=== PATIENT | male | born 1975 | race Caucasian/White ===

== ENCOUNTER 2017-07-06 18:23 | Emergency (ER) | payer MEDICAID, OTHER ==
[2017-07-06 21:03] LABS: AUTOMATED NEUTROPHIL # 6.1 TH/MM3 (1.8-7.7); BASOPHIL # 0.1 TH/MM3 (0-0.2); BASOPHIL % 0.7 % (0.0-2.0); EOSINOPHIL % 0.5 % (0.0-4.0); HEMATOCRIT 41.5 % (39.0-51.0); HEMO FLAGS DIFF FINAL; HEMOGLOBIN 14.2 GM/DL (13.0-17.0); LYMPH % 13.7 % (9.0-44.0); LYMPHOCYTE # 1.1 TH/MM3 (1.0-4.8); MEAN CORPUSCULAR HEMOGLOBIN 29.8 PG (27.0-34.0); MEAN CORPUSCULAR HGB CONC 34.3 % (32.0-36.0); MEAN PLATELET VOLUME 8.8 FL (7.0-11.0); MONO % 7.6 % (0.0-8.0); MONOCYTE # 0.6 TH/MM3 (0-0.9); NEUT % 77.5 % (16.0-70.0); PLATELET COUNT 225 TH/MM3 (150-450); RED BLOOD COUNT 4.77 MIL/MM3 (4.50-5.90); RED CELL DISTRIBUTION WIDTH 12.3 % (11.6-17.2); WHITE BLOOD COUNT 7.9 TH/MM3 (4.0-11.0)
[2017-07-06 21:11] LABS: ALBUMIN 4.2 GM/DL (3.4-5.0); ANION GAP 6 MEQ/L (5-15); BICARBONATE 28.8 MEQ/L (21.0-32.0); BLOOD UREA NITROGEN 8 MG/DL (7-18); CALCIUM 9.2 MG/DL (8.5-10.1); CHLORIDE 102 MEQ/L (98-107); CREATININE 0.94 MG/DL (0.60-1.30); GLOMERULAR FILTRATION RATE 89 ML/MIN (>89); GLUCOSE,RANDOM 70 MG/DL (74-106); POTASSIUM 3.2 MEQ/L (3.5-5.1); SODIUM (NA) 137 MEQ/L (136-145)
[2017-07-06 21:12] LABS: SALICYLATES LESS THAN 1.7 MG/DL (2.8-20.0)
[2017-07-06 21:13] LABS: ALT (GPT) 61 U/L (12-78); AST (GOT) 52 U/L (15-37)
[2017-07-06 21:16] LABS: ALCOHOL LESS THAN 3 MG/DL (0-5)
[2017-07-06 21:22] LABS: ALKALINE PHOSPHATASE 54 U/L (45-117); PHENYTOIN (DILANTIN) LESS THAN 0.4 MCG/ML (10.0-20.0); TOTAL BILIRUBIN ADULT 0.6 MG/DL (0.2-1.0); TOTAL PROTEIN 7.7 GM/DL (6.4-8.2)
[2017-07-06 21:29] LABS: ACETAMINOPHEN LESS THAN 2.0 MCG/ML (10.0-30.0)
[2017-07-06] MEDS: lamoTRIgine 100 MG TAB PO (22:30)
[2017-07-06] MEDS: QUEtiapine FUMARATE 300 MG TAB PO (22:30)
[2017-07-06] MEDS: PHENYTOIN SODIUM 100 MG CAP PO (22:30)
[2017-07-06 23:17] LABS: AMPHETAMINE, URINE NEG (NEG); BARBITURATES, URINE NEG (NEG); BENZODIAZEPINE,URINE NEG (NEG); CANNABINOIDS, URINE POS (NEG); COCAINE, URINE POS (NEG)
[2017-07-07] MEDS: POTASSIUM CHLORIDE 10 MEQ CONTROLLED RELEASE TAB PO (04:00)
== END 2017-07-07 04:47 ==
LOC: NEPJ 07-07 04:47
DX: Z13.89 Encounter for screening for other disorder (principal); R94.6 Abnormal results of thyroid function studies; E87.6 Hypokalemia; F19.10 Other psychoactive substance abuse, uncomplicated; F20.9 Schizophrenia, unspecified; F32.9 Major depressive disorder, single episode, unspecified; J45.909 Unspecified asthma, uncomplicated; Z72.0 Tobacco use
CPT/HCPCS: 80053; 80185; 80307; 84443; 85025; 99284

== ENCOUNTER 2017-07-07 20:02 | Observation (INO) | payer MEDICAID, OTHER ==
[~2017-07-07] VITALS: Ht 177.8 cm; Wt 68.0 kg
[~2017-07-07 20:02] MED LIST: IBUP200T47 PO; LACO100 PO; LAMO100T PO; PHEN200C3 PO; QUET1TAB10 PO
[2017-07-07 20:09] VITALS: BP 123/79; PULSE 81; RESP 16; TEMP 98.4; O2SAT 98
[2017-07-07] MEDS ORDERED: LAMO100 PO (20:18)
[2017-07-07] MEDS ORDERED: SODIUM CHLORIDE 0.9% FLUSH 10 ML FLUSH IVF PRN (20:45)
--- NOTE | 2017-07-07 20:46 | PD ---
HPI Chief Complaint: Seizure Time Seen by Provider: 20:26 Travel History International Travel<30 days: No Contact w/Intl Traveler<30days: No Traveled to known affect area: No History of Present Illness HPI Patient comes emergency Department under a Lopez act from [facility] after having a witnessed seizure. Patient reportedly fell approximately foot out of bed. Patient was given 4 of Ativan. Patient has a history of seizures but has not been taking his medication for the past week. Patient is on Dilantin. Patient is currently poor story and secondary to Ativan and recent seizure. Thus limiting H&P. History is obtained primarily through reports RN received from [facility]. [facility] will not take the patient back unless there Dilantin level was between 10 and 20. PFSH Past Medical History Asthma: Yes Depression: Yes (MDD) Diabetes: No Diminished Hearing: No Neurologic: Yes (HX SZ) Psychiatric: Yes Schizophrenia: Yes Seizures: Yes Tetanus Vaccination: Unknown Social History Alcohol Use: Yes Tobacco Use: Yes Substance Use: Yes Allergies-Medications (Allergen,Severity, Reaction): Coded Allergies: No Known Allergies (Verified Allergy, Unknown, 07/06/17) Reported Meds & Prescriptions Reported Meds & Active Scripts Active Phenytoin Extended 200 Mg Cap 200 Mg PO BID Reported Lamictal (Lamotrigine) 100 Mg Tab 100 Mg PO BID Vimpat (Lacosamide) 100 Mg Tab 100 Mg PO BID Quetiapine (Quetiapine Fumarate) 300 Mg Tab 150 Mg PO HS Lamotrigine 100 Mg Tab 100 Mg PO BID Ibuprofen 200 Mg Tab 200 Mg PO Q6H PRN Review of Systems ROS Limitations: Clinical Condition Physical Exam Exam Limitations: Clinical Condition Narrative GENERAL: Well-developed, well nourished, in no acute distress, and non-ill appearing. SKIN: Focused skin assessment warm and dry. HEAD: Atraumatic. Normocephalic. EYES: Pupils equal and round. EOMI. No scleral icterus. No injection or drainage. ENT: No nasal bleeding or discharge. Mucous membranes pink and moist. NECK: Trachea midline. C-collar in place. CARDIOVASCULAR: Regular rate and rhythm. No murmur appreciated. RESPIRATORY: No accessory muscle use. No respiratory distress. Clear to auscultation. Breath sounds equal bilaterally. MUSCULOSKELETAL: No obvious deformities. No clubbing. No cyanosis. No edema. Patient moving all 4 extremities. NEUROLOGICAL: Sleeping likely secondary to Ativan and suspect postictal. Data Data Last Documented VS Vital Signs Date Time Temp Pulse Resp B/P (MAP) Pulse Ox O2 Delivery O2 Flow Rate FiO2 07/07/17 22:00 91 16 126/74 (91) 100 07/07/17 20:09 98.4 Orders Orders Complete Blood Count With Diff (07/07/17 20:33) Basic Metabolic Panel (Bmp) (07/07/17 20:33) Alcohol (Ethanol) (07/07/17 20:33) Phenytoin (Dilantin) (07/07/17 20:33) Drug Screen, Random Urine (07/07/17 20:33) Ct Brain W/O Iv Contrast(Rout) (07/07/17 ) Blood Glucose (07/07/17 20:33) Ecg Monitoring (07/07/17 20:33) Iv Access Insert/Monitor (07/07/17 20:33) Oximetry (07/07/17 20:33) Sodium Chloride 0.9% Flush (Ns Flush) (07/07/17 20:45) Ct Cerv Spine W/O Contrast (07/07/17 ) Psych Screen (07/07/17 20:46) Electrocardiogram (07/07/17 20:13) Phenytoin Inj (Dilantin Inj) (07/07/17 22:15) Admit Order (Ed Use Only) (07/07/17 ) Vital Signs (Adult) Q4H (07/07/17 22:38) Activity Oob With Assistance (07/07/17 22:38) Notify Dr: Other (07/07/17 22:38) Labs Laboratory Tests Test 07/07/17 20:30 White Blood Count 6.6 TH/MM3 Red Blood Count 4.38 MIL/MM3 Hemoglobin 13.3 GM/DL Hematocrit 38.1 % Mean Corpuscular Volume 86.9 FL Mean Corpuscular Hemoglobin 30.3 PG Mean Corpuscular Hemoglobin Concent 34.9 % Red Cell Distribution Width 12.5 % Platelet Count 200 TH/MM3 Mean Platelet Volume 9.1 FL Neutrophils (%) (Auto) 65.3 % Lymphocytes (%) (Auto) 21.2 % Monocytes (%) (Auto) 10.5 % Eosinophils (%) (Auto) 2.2 % Basophils (%) (Auto) 0.8 % Neutrophils # (Auto) 4.3 TH/MM3 Lymphocytes # (Auto) 1.4 TH/MM3 Monocytes # (Auto) 0.7 TH/MM3 Eosinophils # (Auto) 0.1 TH/MM3 Basophils # (Auto) 0.1 TH/MM3 CBC Comment DIFF FINAL Differential Comment Blood Urea Nitrogen 16 MG/DL Creatinine 1.20 MG/DL Random Glucose 106 MG/DL Calcium Level 8.7 MG/DL Sodium Level 143 MEQ/L Potassium Level 3.9 MEQ/L Chloride Level 109 MEQ/L Carbon Dioxide Level 28.5 MEQ/L Anion Gap 6 MEQ/L Estimat Glomerular Filtration Rate 67 ML/MIN Phenytoin (Dilantin) Level 6.0 MCG/ML Ethyl Alcohol Level LESS THAN 3 MG/DL MDM Medical Decision Making Medical Screen Exam Complete: Yes Emergency Medical Condition: Yes Interpretation(s) EKG reviewed by Dr. Lee shows sinus rhythm with ventricular rate of 78. No STEMI. Last Impressions Head CT 07/07/17 0000 Signed Impressions: Service Date/Time: Friday, July 07, 2017 20:49 - CONCLUSION: 1. No acute intracranial abnormalities. Jim Huerta MD Cervical Spine CT 07/07/17 0000 Signed Impressions: Service Date/Time: Friday, July 07, 2017 20:51 - CONCLUSION: Normal examination for a patient of this age. Jim Huerta MD Differential Diagnosis Seizure, subtherapeutic Dilantin, Lopez act, metabolic disturbance, closed head injury, fracture Narrative Course Patient was seen and examined. IV was established patient's please and cardiac monitoring. Initial laboratory and radiological studies were ordered. Patient' s Dilantin level was found to be subtherapeutic following dose was given. Patient will be admitted to medicine. Until Lopez act will be lifted or patient 's Dilantin level is therapeutic and can be transferred back to [facility]. Discussed patient with Dr. Lee, who is in agreement with plan of care and disposition. Discussed patient with hospitalist who is agreeable to admit the patient. Physician Communication Physician Communication [phone] Gil, who is agreeable to admit the patient. Diagnosis Primary Impression: Seizures Additional Impressions: Subtherapeutic serum dilantin level Lopez act Admitting Information Admitting Physician Requests: Observation Condition: Stable Vikash Esposito Jul 07, 2017 20:46
--- NOTE | 2017-07-07 20:46 | PD ---
Physical Exam Date Seen by Provider: Jul 07, 2017 Narrative Patient presents to us from [facility] status post seizure 2. His is here. She states that he has a known seizure disorder. The worker from [facility] reports that he admitted that he had been noncompliant with his medications. Data Data Last Documented VS Vital Signs Date Time Temp Pulse Resp B/P (MAP) Pulse Ox O2 Delivery O2 Flow Rate FiO2 07/07/17 20:12 16 99 07/07/17 20:09 98.4 81 123/79 (94) Orders Orders Complete Blood Count With Diff (07/07/17 20:33) Basic Metabolic Panel (Bmp) (07/07/17 20:33) Alcohol (Ethanol) (07/07/17 20:33) Phenytoin (Dilantin) (07/07/17 20:33) Drug Screen, Random Urine (07/07/17 20:33) Ct Brain W/O Iv Contrast(Rout) (07/07/17 ) Blood Glucose (07/07/17 20:33) Ecg Monitoring (07/07/17 20:33) Iv Access Insert/Monitor (07/07/17 20:33) Oximetry (07/07/17 20:33) Sodium Chloride 0.9% Flush (Ns Flush) (07/07/17 20:45) Ct Cerv Spine W/O Contrast (07/07/17 ) MDM Supervised Visit with ANA: Yes Narrative Course I, Dr. Lee, have reviewed the advance practice practitioner's documentation and am in agreement, met with the patient face to face, made the diagnosis, and the medical decision making was done by me. *My assessment and Findings: The patient is currently sound asleep following his seizures and following Ativan 4 mg to control the seizures. Please see Suleiman Esposito PA-C's note for results of laboratory and radiographic evaluation, ED course, final diagnosis and disposition Richa Lee MD Jul 07, 2017 20:46
--- NOTE | 2017-07-07 21:32 | RADRPT ---
EXAM DATE/TIME: 07/07/2017 20:49 [facility] COMPARISON: No previous studies available for comparison. INDICATIONS : Seizure, possible fall. RADIATION DOSE: 56.35 CTDIvol (mGy) MEDICAL HISTORY : Seizures. Substance abuse. SURGICAL HISTORY : None. ENCOUNTER: Initial ACUITY: 1 day PAIN SCALE: Non-responsive LOCATION: cranial TECHNIQUE: Multiple contiguous axial images were obtained of the head. Using automated exposure control and adj ustment of the mA and/or kV according to patient size, radiation dose was kept as low as reasonably a chievable to obtain optimal diagnostic quality images. DICOM format image data is available electro nically for review and comparison. FINDINGS: CEREBRUM: The ventricles are normal for age. No evidence of midline shift, mass lesion, hemorrhage or acute in farction. No extra-axial fluid collections are seen. POSTERIOR FOSSA: The cerebellum and brainstem are intact. The 4th ventricle is midline. The cerebellopontine angle i s unremarkable. EXTRACRANIAL: The visualized portion of the orbits is intact. SKULL: The calvaria is intact. No evidence of skull fracture. CONCLUSION: 1. No acute intracranial abnormalities. Jim Huerta MD on July 07, 2017 at 21:28 Board Certified Radiologist. This report was verified electronically.
[2017-07-07 21:35] LABS: AUTOMATED NEUTROPHIL # 4.3 TH/MM3 (1.8-7.7); BASOPHIL # 0.1 TH/MM3 (0-0.2); BASOPHIL % 0.8 % (0.0-2.0); EOSINOPHIL # 0.1 TH/MM3 (0-0.4); EOSINOPHIL % 2.2 % (0.0-4.0); HEMATOCRIT 38.1 % (39.0-51.0); HEMOGLOBIN 13.3 GM/DL (13.0-17.0); LYMPH % 21.2 % (9.0-44.0); LYMPHOCYTE # 1.4 TH/MM3 (1.0-4.8); MEAN CELL VOLUME 86.9 FL (80.0-100.0); MEAN CORPUSCULAR HEMOGLOBIN 30.3 PG (27.0-34.0); MEAN CORPUSCULAR HGB CONC 34.9 % (32.0-36.0); MEAN PLATELET VOLUME 9.1 FL (7.0-11.0); MONO % 10.5 % (0.0-8.0); MONOCYTE # 0.7 TH/MM3 (0-0.9); NEUT % 65.3 % (16.0-70.0); PLATELET COUNT 200 TH/MM3 (150-450); RED BLOOD COUNT 4.38 MIL/MM3 (4.50-5.90); RED CELL DISTRIBUTION WIDTH 12.5 % (11.6-17.2); WHITE BLOOD COUNT 6.6 TH/MM3 (4.0-11.0)
[2017-07-07 21:37] LABS: BICARBONATE 28.5 MEQ/L (21.0-32.0); BLOOD UREA NITROGEN 16 MG/DL (7-18); CALCIUM 8.7 MG/DL (8.5-10.1); CHLORIDE 109 MEQ/L (98-107); GLOMERULAR FILTRATION RATE 67 ML/MIN (>89); GLUCOSE,RANDOM 106 MG/DL (74-106); SODIUM (NA) 143 MEQ/L (136-145)
--- NOTE | 2017-07-07 21:37 | RADRPT ---
EXAM DATE/TIME: 07/07/2017 20:51 [facility] COMPARISON: No previous studies available for comparison. INDICATIONS : Seizure, possible fall. RADIATION DOSE: 26.44 CTDIvol (mGy) MEDICAL HISTORY : Seizures. Substance abuse. SURGICAL HISTORY : None. ENCOUNTER: Initial ACUITY: 1 day PAIN SCALE: Non-responsive LOCATION: neck TECHNIQUE: Volumetric scanning of the cervical spine was performed. Multiplanar reconstructions in the sagittal, coronal and oblique axial planes were performed. Using automated exposure control and adjustment o f the mA and/or kV according to patient size, radiation dose was kept as low as reasonably achievable to obtain optimal diagnostic quality images. DICOM format image data is available electronically f or review and comparison. FINDINGS: VERTEBRAE: Normal vertebral body height. ALIGNMENT: No evidence of subluxation. C2-C3: The bony spinal canal is normal in size. No evidence of disc bulge or herniation. The neural forami na are bilaterally patent. C3-C4: The bony spinal canal is normal in size. No evidence of disc bulge or herniation. The neural forami na are bilaterally patent. C4-C5: The bony spinal canal is normal in size. No evidence of disc bulge or herniation. The neural forami na are bilaterally patent. C5-C6: The bony spinal canal is normal in size. No evidence of disc bulge or herniation. The neural forami na are bilaterally patent. C6-C7: The bony spinal canal is normal in size. No evidence of disc bulge or herniation. The neural forami na are bilaterally patent. C7-T1: The bony spinal canal is normal in size. No evidence of disc bulge or herniation. The neural forami na are bilaterally patent. CONCLUSION: Normal examination for a patient of this age. Jim Huerta MD on July 07, 2017 at 21:33 Board Certified Radiologist. This report was verified electronically.
[2017-07-07 22:00] VITALS: BP 126/74; PULSE 91; RESP 16; O2SAT 100
[2017-07-07] MEDS ORDERED: PHENYTOIN INJ 1,000 MG in SODIUM CHLORIDE 0.9% INJ 100 ML IV ONE (22:15)
--- NOTE | 2017-07-08 00:25 | EKG ---
Date Performed: 07/07/2017 Time Performed: 20:13:54 PTAGE: 42 years EKG: Sinus rhythm MINIMAL VOLTAGE CRITERIA FOR LVH, CONSIDER NORMAL VARIANT BORDERLINE ECG NO PREVIOUS TRACING DOCTOR: Joshua Delong Interpretating Date/Time 07/08/2017 00:24:34
[2017-07-08] MEDS ORDERED: LACTULOSE SYRUP 20 GM/30 ML CUP PO PRN (00:30)
[2017-07-08] MEDS ORDERED: NALOXONE HCL 0.4 MG/ML AMP IV PUSH PRN (00:30)
[2017-07-08] MEDS ORDERED: LORazepam 2 MG/ML VIAL IV PUSH PRN ×5 (00:30→00:45)
[2017-07-08] MEDS ORDERED: SODIUM CHLORIDE 0.9% FLUSH 10 ML FLUSH IV FLUSH PRN (00:30)
[2017-07-08] MEDS ORDERED: FLUMAZENIL 0.5 MG/5 ML VIAL IV PUSH PRN (00:30)
[2017-07-08] MEDS ORDERED: MAGNESIUM HYDROXIDE SUSP 30 ML CUP PO PRN (00:30)
[2017-07-08] MEDS ORDERED: LORazepam 1 MG TAB PO PRN (00:30)
[2017-07-08] MEDS ORDERED: ACETAMINOPHEN 325 MG TAB PO PRN (00:30)
[2017-07-08] MEDS ORDERED: BISACODYL 10 MG SUPP RECTAL PRN (00:30)
[2017-07-08] MEDS ORDERED: ONDANSETRON HCL 4 MG/2 ML VIAL IVP PRN (00:30)
[2017-07-08] MEDS ORDERED: SENNOSIDES 8.6 MG TAB PO PRN (00:30)
[2017-07-08] MEDS ORDERED: LORazepam 2 MG TAB PO PRN (00:30)
--- NOTE | 2017-07-08 00:42 | HHI.HP ---
[facility] Admission Diagnosis seizures, Lopez act Diagnoses: Travel History International Travel<30 Days: No Contact w/Intl Traveler <30 Da: No Traveled to Known Affected Are: No History of Present Illness 42-year-old male with a past medical history significant for unspecified psychiatric disorder undergoing treatment at [facility] Act, seizure disorder with noncompliance and cocaine abuse was brought to the emergency department from [facility] for witnessed seizure 2. The patient is status post administration of Ativan and will open his eyes to voice but does not answer questions. History obtained from his and [employer] employee. According to [employer] [facility] employee, the patient was in his room at [facility] when he had a generalized clonic tonic seizure witnessed by his roommate. Prior to ambulance arrival, the patient had another seizure witnessed by staff. No loss of bowel or bladder. The patient is noncompliant with his home seizure medication. His also reports cocaine use. The patient is currently under [employer] act for expressing suicidal ideation to police after an altercation at [facility]. Review of Systems Able to obtain secondary to patient's clinical condition Past Family Social History Past Medical History (Obtained from patient's ) Seizure disorder Unspecified psychiatric illness Alcohol/cocaine abuse Past Surgical History None Reported Medications Reported Meds & Active Scripts Active Phenytoin Extended 200 Mg Cap 200 Mg PO BID Reported Lamictal (Lamotrigine) 100 Mg Tab 100 Mg PO BID Vimpat (Lacosamide) 100 Mg Tab 100 Mg PO BID Quetiapine (Quetiapine Fumarate) 300 Mg Tab 150 Mg PO HS Lamotrigine 100 Mg Tab 100 Mg PO BID Ibuprofen 200 Mg Tab 200 Mg PO Q6H PRN Allergies: Coded Allergies: No Known Allergies (Verified Allergy, Unknown, 07/06/17) Family History Negative for CAD/DM Social History Positive tobacco. reports occasional alcohol use. Cocaine abuse. Physical Exam Vital Signs Vital Signs Date Time Temp Pulse Resp B/P (MAP) Pulse Ox O2 Delivery O2 Flow Rate FiO2 07/07/17 22:00 91 16 126/74 (91) 100 07/07/17 20:12 16 99 07/07/17 20:09 98.4 81 16 123/79 (19) 98 Physical Exam GENERAL: male lying in bed, sleeping. Opens eyes to voice. SKIN: No rashes, ecchymoses or lesions. Cool and dry. HEAD: Atraumatic. Normocephalic. EYES: Pupils pinpoint. No scleral icterus. No injection or drainage. ENT: Nose without bleeding, purulent drainage or septal hematoma. Airway patent. NECK: Trachea midline. No JVD or lymphadenopathy. CARDIOVASCULAR: Regular rate and rhythm without murmurs, gallops, or rubs. RESPIRATORY: Clear to auscultation. Breath sounds equal bilaterally. No wheezes , rales, or rhonchi. GASTROINTESTINAL: Abdomen soft, non-tender, nondistended. No hepato-splenomegaly , or palpable masses. MUSCULOSKELETAL: Extremities without clubbing, cyanosis, or edema. No joint tenderness, effusion, or edema noted. NEUROLOGICAL: Drowsy. Opens eyes to voice. Does not follow commands. Does not answer questions. Laboratory Laboratory Tests Test 07/07/17 20:30 White Blood Count 6.6 Red Blood Count 4.38 Hemoglobin 13.3 Hematocrit 38.1 Mean Corpuscular Volume 86.9 Mean Corpuscular Hemoglobin 30.3 Mean Corpuscular Hemoglobin Concent 34.9 Red Cell Distribution Width 12.5 Platelet Count 200 Mean Platelet Volume 9.1 Neutrophils (%) (Auto) 65.3 Lymphocytes (%) (Auto) 21.2 Monocytes (%) (Auto) 10.5 Eosinophils (%) (Auto) 2.2 Basophils (%) (Auto) 0.8 Neutrophils # (Auto) 4.3 Lymphocytes # (Auto) 1.4 Monocytes # (Auto) 0.7 Eosinophils # (Auto) 0.1 Basophils # (Auto) 0.1 CBC Comment DIFF FINAL Differential Comment Blood Urea Nitrogen 16 Creatinine 1.20 Random Glucose 106 Calcium Level 8.7 Sodium Level 143 Potassium Level 3.9 Chloride Level 109 Carbon Dioxide Level 28.5 Anion Gap 6 Estimat Glomerular Filtration Rate 67 Phenytoin (Dilantin) Level 6.0 Ethyl Alcohol Level LESS THAN 3 Result Diagram: 07/07/17202907/07/172029 Caprini VTE Risk Assessment Caprini VTE Risk Assessment: No/Low Risk (score <= 1) Caprini Risk Assessment Model Point Value = 1 Point Value = 2 Point Value = 3 Point Value = 5 Age 41-60 Minor surgery BMI > 25 kg/m2 Swollen legs Varicose veins or History of unexplained or recurrent spontaneous Oral contraceptives or hormone replacement Sepsis (< 1 month) Serious lung disease, including pneumonia (< 1 month) Abnormal pulmonary function Acute myocardial infarction Congestive heart failure (< 1 month) History of inflammatory bowel disease Medical patient at bed rest Age 61-74 Arthroscopic surgery Major open surgery (> 45 min) Laparoscopic surgery (> 45 min) Malignancy Confined to bed (> 72 hours) Immobilizing plaster cast Central venous access Age >= 75 History of VTE Family history of VTE Factor V Leiden Prothrombin [id number] Lupus anticoagulant Anticardiolipin antibodies Elevated serum homocysteine Heparin-induced thrombocytopenia Other congenital or acquired thrombophilia Stroke (< 1 month) Elective arthroplasty Hip, pelvis, or leg fracture Acute spinal cord injury (< 1 month) Prophylaxis Regimen Total Risk Factor Score Risk Level Prophylaxis Regimen 0-1 Low Early ambulation 2 Moderate Order ONE of the following: *Sequential Compression Device (SCD) *Heparin 5000 units SQ BID 3-4 Higher Order ONE of the following medications: *Heparin 5000 units SQ TID *Enoxaparin/Lovenox 40 mg SQ daily (WT < 150 kg, CrCl > 30 mL/min) *Enoxaparin/Lovenox 30 mg SQ daily (WT < 150 kg, CrCl > 10-29 mL/min) *Enoxaparin/Lovenox 30 mg SQ BID (WT < 150 kg, CrCl > 30 mL/min) AND/OR *Sequential Compression Device (SCD) 5 or more Highest Order ONE of the following medications: *Heparin 5000 units SQ TID (Preferred with Epidurals) *Enoxaparin/Lovenox 40 mg SQ daily (WT < 150 kg, CrCl > 30 mL/min) *Enoxaparin/Lovenox 30 mg SQ daily (WT < 150 kg, CrCl > 10-29 mL/min) *Enoxaparin/Lovenox 30 mg SQ BID (WT < 150 kg, CrCl > 30 mL/min) AND *Sequential Compression Device (SCD) Assessment and Plan Assessment and Plan Assessment/plan: 1. Witnessed seizure with history of seizure disorder Secondary to medication noncompliance Dilantin level less than 0.4 Status post loading dose of Dilantin in the ED Continue home Dilantin and Lamictal Seizure precautions Ativan prn Transfer to [facility] act once Dilantin level therapeutic 2. Specified psychiatric disorder/Lopez act/suicidal ideation Patient reported intention to harm himself to police after altercation at [facility] Has psychiatric history although his is not aware of diagnoses Psychiatry consulted, appreciate recommendations 3. History of cocaine/alcohol abuse [facility] protocol Multivitamin, thiamine, folate FEN Heart healthy diet Electrolytes: monitor and replete prn Elsa Gil MD Jul 08, 2017 00:42
[2017-07-08] MEDS: THIAMINE INJ 100 MG in SODIUM CHLORIDE 0.9% INJ 100 ML IV SCH (01:33)
[2017-07-08] MEDS: MULTIVITAMIN INJ 10 ML, FOLIC ACID INJ 1 MG in SODIUM CHLORID 0.9% 500 ML INJ 500 ML IV SCH (01:33)
[2017-07-08 02:45] VITALS: BP 109/64; PULSE 83; RESP 18; TEMP 96.7; O2SAT 97
[2017-07-08 08:00] VITALS: BP 124/71; PULSE 72; RESP 20; TEMP 96.4; O2SAT 99
[2017-07-08] MEDS: SODIUM CHLORIDE 0.9% FLUSH 10 ML FLUSH IV FLUSH SCH ×2 (09:13→22:25)
[2017-07-08] MEDS: lamoTRIgine 100 MG TAB PO SCH ×2 (09:14→22:26)
[2017-07-08] MEDS: PHENYTOIN SODIUM 100 MG CAP PO SCH ×2 (09:14→22:25)
[2017-07-08] MEDS: DOCUSATE SODIUM 50 MG/SENNA 8.6 MG TAB PO SCH ×2 (09:15→22:26)
--- NOTE | 2017-07-08 11:09 | HHI.PR ---
Subjective Remarks Follow-up seizure. Lethargic but easily arousable. Admits noncompliance coz he is homeless. Lopez RN Objective Vitals Vital Signs Date Time Temp Pulse Resp B/P (MAP) Pulse Ox O2 Delivery O2 Flow Rate FiO2 07/08/17 08:00 96.4 72 20 124/71 (88) 99 07/08/17 02:45 96.7 83 18 109/64 (79) 97 07/07/17 22:00 91 16 126/74 (91) 100 07/07/17 20:12 16 99 07/07/17 20:09 98.4 81 16 123/79 (94) 98 I/O 07/07/17 07/07/17 07/07/17 07/08/17 07/08/17 07/08/17 07:00 15:00 23:00 07:00 15:00 23:00 Intake Total 120 ml 720 ml Output Total 950 ml 500 ml Balance -830 ml 220 ml Intake Oral 720 ml IV Total 120 ml Output Urine Total 950 ml 500 ml Result Diagram: 07/07/17202907/07/172029 Imaging Last Impressions Head CT 07/07/17 0000 Signed Impressions: Service Date/Time: Friday, July 07, 2017 20:49 - CONCLUSION: 1. No acute intracranial abnormalities. Jim Huerta MD Cervical Spine CT 07/07/17 0000 Signed Impressions: Service Date/Time: Friday, July 07, 2017 20:51 - CONCLUSION: Normal examination for a patient of this age. Jim Huerta MD Objective Remarks GENERAL: male lying in bed, sleeping. SKIN: No rashes, ecchymoses or lesions. Cool and dry. CARDIOVASCULAR: Regular rate and rhythm without murmurs, gallops, or rubs. RESPIRATORY: Clear to auscultation. Breath sounds equal bilaterally. No wheezes , rales, or rhonchi. GASTROINTESTINAL: Abdomen soft, non-tender, nondistended. MUSCULOSKELETAL: Extremities without clubbing, cyanosis, or edema. No joint tenderness, effusion, or edema noted. NEUROLOGICAL: Drowsy. Answers questions and follows commands appropriately Procedures none A/P Problem List: (1) Seizures ICD Code: R56.9 - Unspecified convulsions Status: Acute Assessment and Plan 1. Witnessed seizure with history of seizure disorder secondary to noncompliance. Dilantin level less than 0.4 Status post loading dose of Dilantin in the ED Continue home Dilantin and Lamictal. Med list also shows he is on Vimpat and norma restart Seizure precautions Ativan prn Transfer to [facility] once Dilantin level therapeutic. Monitor LFTs AST slightly up 2. Specified psychiatric disorder/Lopez act/suicidal ideation Patient reported intention to harm himself to police after altercation at [facility] Has psychiatric history although his is not aware of diagnoses Psychiatry consulted, appreciate recommendations ct BA and restart Seroquel 3. History of cocaine/alcohol abuse [facility] protocol Multivitamin, thiamine, folate FEN Heart healthy diet Electrolytes: monitor and replete prn Discharge Planning Back to [facility] when Dilantin therapeutic Abando,Jose G Roberson MD Jul 08, 2017 11:09
[2017-07-08 12:00] VITALS: BP 104/55; PULSE 80; RESP 20; TEMP 97.1; O2SAT 96
--- NOTE | 2017-07-08 12:25 | PD.PSY.CON ---
Provisional Diagnosis Admission Date Jul 07, 2017 at 22:40 Jenison I. Post ictal confusion, substance induced mood disorder, cocaine, alcohol and cannabis use disorder, history of bipolar disorder Jenison II. Deferred Jenison III. Seizures History of Present Illness Service Psychiatry Consult Requested By ER team Reason for Consult Under Lopez act Primary Care Physician Unknown HPI The patient is a 42-year-old man, domiciled in [place] his , employed as a chef de partie in a restaurant, with psychiatric history of bipolar disorder , cocaine, cannabis, previous psychiatric hospitalizations, previous suicidal attempts, with a past medical history of seizures, noncompliant with medications , who was brought to the emergency department from [facility] for witnessed seizure 2. The patient is status post administration of Ativan and will open his eyes to voice but does not answer questions. History obtained from his and [facility] employee. According to [facility] [facility] employee, the patient was in his room at [facility] when he had a generalized clonic tonic seizure witnessed by his roommate. Prior to ambulance arrival, the patient had another seizure witnessed by staff. The patient is currently under Lopez act for expressing suicidal ideation to police after an altercation at [facility]. On psychiatric evaluation today the patient seems to be confused, lethargic, but is able to answer many of my questions. Patient says that he has been in treatment of addiction in [facility]. He doesn't know exactly what happened and what is the reason he was brought here to the hospital. His is to be oriented 3, he reports okay mood, denies suicidal and homicidal ideation, denies visual and auditory hallucinations at this moment. Patient denies that he had ever stated that he wanted to kill himself, he says "I don't really remember". He reports daily use of cocaine and cannabis. Review of Systems Constitutional: DENIES: Diaphoretic episodes, Fatigue, Fever, Weight gain, Weight loss, Chills, Dizziness, Change in appetite, Night Sweats Endocrine: DENIES: Heat/cold intolerance, Polydipsia, Polyuria, Polyphagia Eyes: DENIES: Blurred vision, Diplopia, Eye inflammation, Eye pain, Vision loss , Photosensitivity, Double Vision Ears, nose, mouth, throat: DENIES: Tinnitus, Hearing loss, Vertigo, Nasal discharge, Oral lesions, Throat pain, Hoarseness, Ear Pain, Running Nose, Epistaxis, Sinus Pain, Toothache, Odynophagia Respiratory: DENIES: Apneas, Cough, Snoring, Wheezing, Hemoptysis, Sputum production, Shortness of breath Cardiovascular: DENIES: Chest pain, Palpitations, Syncope, Dyspnea on Exertion , PND, Lower Extremity Edema, Orthopnea, Claudication Gastrointestinal: DENIES: Abdominal pain, Black stools, Bloody stools, Constipation, Diarrhea, Nausea, Vomiting, Difficulty Swallowing, Anorexia Genitourinary: DENIES: Sexual dysfunction, Urinary frequency, Urinary incontinence, Urgency, Hematuria, Dysuria, Nocturia, Penile Discharge, Testicular Pain, Testicular Swelling Musculoskeletal: DENIES: Joint pain, Muscle aches, Stiffness, Joint Swelling, Back pain, Neck pain Integumentary: DENIES: Abnormal pigmentation, Nail changes, Pruritus, Rash Hematologic/lymphatic: DENIES: Bruising, Lymphadenopathy Neurologic: DENIES: Abnormal gait, Headache, Localized weakness, Paresthesias, Seizures, Speech Problems, Tremor, Poor Balance Psychiatric: COMPLAINS OF: Confusion, DENIES: Anxiety, Mood changes, Depression , Hallucinations, Agitation, Suicidal Ideation, Homicidal Ideation, Delusions Past Family Social History Coded Allergies: No Known Allergies (Verified Allergy, Unknown, 07/06/17) Active Scripts Phenytoin Extended (Phenytoin Extended) 200 Mg Cap, 200 MG PO BID for Control Seizures, #180 CAP 0 Refills Prov:Sha Mezapascual SAEZ 04/30/17 Reported Medications Lamotrigine (Lamictal) 100 Mg Tab, 100 MG PO BID for Control Seizures, #60 TAB 0 Refills 07/07/17 Lacosamide (Vimpat) 100 Mg Tab, 100 MG PO BID for Control Seizures, #60 TAB 0 Refills 07/06/17 Quetiapine (Quetiapine) 300 Mg Tab, 150 MG PO HS, #30 TAB 0 Refills 07/06/17 Lamotrigine (Lamotrigine) 100 Mg Tab, 100 MG PO BID for Control Seizures, #60 TAB 0 Refills 07/06/17 Ibuprofen (Ibuprofen) 200 Mg Tab, 200 MG PO Q6H Y for PAIN SCALE 1 TO 10, TAB 0 Refills 06/18/16 Current Medications Medications (Trade) Dose Ordered Sig/Flavio Route Start Time Stop Time Status Last Admin (LaMICtal) 100 mg BID PO 07/08/17 09:00 07/08/17 09:14 (Dilantin) 200 mg BID PO 07/08/17 09:00 07/08/17 09:14 (NS Flush) 2 ml UNSCH PRN IV FLUSH 07/08/17 00:30 (NS Flush) 2 ml BID IV FLUSH 07/08/17 09:00 07/08/17 09:13 (Tylenol) 650 mg Q4H PRN PO 07/08/17 00:30 (Zofran Inj) 4 mg Q6H PRN IVP 07/08/17 00:30 (Narcan Inj) 0.4 mg UNSCH PRN IV PUSH 07/08/17 00:30 (Cortney-Colace) 1 tab BID PO 07/08/17 09:00 07/08/17 09:15 (Milk Of Magnesia Liq) 30 ml Q12H PRN PO 07/08/17 00:30 (Senokot) 17.2 mg Q12H PRN PO 07/08/17 00:30 (Dulcolax Supp) 10 mg DAILY PRN RECTAL 07/08/17 00:30 (Lactulose Liq) 30 ml DAILY PRN PO 07/08/17 00:30 Multivitamins 10 ml/Folic Acid 1 mg/Sodium Chloride 510.2 ml @ 125 mls/hr Q24H IV 07/08/17 01:00 07/13/17 00:59 07/08/17 01:33 Thiamine HCl 100 mg/Sodium Chloride 101 ml @ 100 mls/hr Q24H IV 07/08/17 01:00 07/11/17 00:59 07/08/17 01:33 (Vitamin B1) 100 mg DAILY PO 07/11/17 09:00 (Romazicon Inj) 0.2 mg Q1M PRN IV PUSH 07/08/17 00:30 (Ativan) 1 mg Q4H PRN PO 07/08/17 00:30 (Ativan Inj) 1 mg Q4H PRN IV PUSH 07/08/17 00:30 (Ativan) 2 mg Q2H PRN PO 07/08/17 00:30 (Ativan Inj) 2 mg Q2H PRN IV PUSH 07/08/17 00:30 (Ativan Inj) 2 mg Q1H PRN IV PUSH 07/08/17 00:30 (Ativan Inj) 2 mg Q15M PRN IV PUSH 07/08/17 00:30 (Ativan Inj) 1 mg Q15M PRN IV PUSH 07/08/17 00:45 Family Psych History No family psychiatric history Social History Patient was born and raised in [place], he lives in [facility] with his , he works as a chef de partie in a restaurant, his highest level of education is has Patient's Strengths (min. 2) He is in treatment for addiction at this moment Physical Exam Very lethargic and somnolent Vital Signs Vital Signs Date Time Temp Pulse Resp B/P (MAP) Pulse Ox O2 Delivery O2 Flow Rate FiO2 07/08/17 08:00 96.4 72 20 124/71 (88) 99 I/O 07/08/17 07/08/17 07/09/17 08:00 16:00 00:00 Intake Total 120 ml 720 ml Output Total 950 ml 500 ml Balance -830 ml 220 ml Lab Results Test 07/07/17 20:30 White Blood Count 6.6 TH/MM3 Red Blood Count 4.38 MIL/MM3 Hemoglobin 13.3 GM/DL Hematocrit 38.1 % Mean Corpuscular Volume 86.9 FL Mean Corpuscular Hemoglobin 30.3 PG Mean Corpuscular Hemoglobin Concent 34.9 % Red Cell Distribution Width 12.5 % Platelet Count 200 TH/MM3 Mean Platelet Volume 9.1 FL Neutrophils (%) (Auto) 65.3 % Lymphocytes (%) (Auto) 21.2 % Monocytes (%) (Auto) 10.5 % Eosinophils (%) (Auto) 2.2 % Basophils (%) (Auto) 0.8 % Neutrophils # (Auto) 4.3 TH/MM3 Lymphocytes # (Auto) 1.4 TH/MM3 Monocytes # (Auto) 0.7 TH/MM3 Eosinophils # (Auto) 0.1 TH/MM3 Basophils # (Auto) 0.1 TH/MM3 CBC Comment DIFF FINAL Differential Comment Blood Urea Nitrogen 16 MG/DL Creatinine 1.20 MG/DL Random Glucose 106 MG/DL Calcium Level 8.7 MG/DL Sodium Level 143 MEQ/L Potassium Level 3.9 MEQ/L Chloride Level 109 MEQ/L Carbon Dioxide Level 28.5 MEQ/L Anion Gap 6 MEQ/L Estimat Glomerular Filtration Rate 67 ML/MIN Phenytoin (Dilantin) Level 6.0 MCG/ML Ethyl Alcohol Level LESS THAN 3 MG/DL Mental Status Examination Appearance: Appropriate Consciousness: Alert Orientation: x4 Motor Activity: Normal gait Speech: Unremarkable Language: Adequate Fund of Knowledge: Adequate Attention and Concentration: Adequate Memory: Unremarkable Mood: Appropriate Affect: Blunt Thought Process & Associations: Intact Thought Content: Appropriate Hallucination Type: None Delusion Type: None Suicidal Ideation: No Suicidal Plan: No Suicidal Intention: No Homicidal Ideation: No Homicidal Plan: No Homicidal Intention: No Insight: Fair Judgment: Impulsive Assessment & Plan Problem List: (1) Post-ictal confusion ICD Codes: F05 - Delirium due to known physiological condition Assessment & Plan: On psychiatric evaluation today the patient is a little bit lethargic, somnolent, confused at times, but able to cooperate. Patient reports that he has been in treatment of addiction in a [facility]. He denies most symptoms of this moment, she denies suicidal and homicidal ideation, he denies visual and auditory hallucinations. Patient doesn't seem to have memory and recollection of the acts that brought him to the hospital and initiated the Lopez act. This patient should remain on the Lopez act and once medically cleared, he should be transferred back to [facility]. I will reinitiate Seroquel 150 mg daily that he was taking in [facility]. He needs to be in [facility]. Brief supportive psychotherapy and psychoeducation provided . We'll follow-up. Assessment & Plan Estimated LOS: Sander Win MD Jul 08, 2017 12:25
[2017-07-08] MEDS ORDERED: PILL SPLITTER OTHER PRN (13:15)
[2017-07-08] MEDS: LACOSAMIDE 100 MG TAB PO SCH ×2 (13:54→22:25)
[2017-07-08 14:40] LABS: FREE T3 2.25 PG/ML (2.18-3.98); FREE T4 0.99 NG/DL (0.76-1.46)
[2017-07-08] MEDS ORDERED: QUEtiapine FUMARATE 300 MG TAB PO SCH (21:00)
[2017-07-08 21:39] VITALS: BP 126/82; PULSE 90; RESP 18; TEMP 98.8; O2SAT 98
[2017-07-09] VITALS: BP 116/65; PULSE 74; RESP 16; TEMP 98.2; O2SAT 98
[2017-07-09] MEDS: THIAMINE INJ 100 MG in SODIUM CHLORIDE 0.9% INJ 100 ML IV SCH (01:00)
[2017-07-09] MEDS: MULTIVITAMIN INJ 10 ML, FOLIC ACID INJ 1 MG in SODIUM CHLORID 0.9% 500 ML INJ 500 ML IV SCH (02:00)
[2017-07-09 04:14] VITALS: BP 107/62; PULSE 81; RESP 16; TEMP 97.8; O2SAT 98
[2017-07-09 07:47] LABS: BASOPHIL # 0.1 TH/MM3 (0-0.2); EOSINOPHIL # 0.1 TH/MM3 (0-0.4); EOSINOPHIL % 2.1 % (0.0-4.0); HEMATOCRIT 38.6 % (39.0-51.0); HEMOGLOBIN 13.3 GM/DL (13.0-17.0); LYMPH % 29.7 % (9.0-44.0); MEAN CELL VOLUME 87.4 FL (80.0-100.0); MEAN CORPUSCULAR HEMOGLOBIN 30.1 PG (27.0-34.0); MEAN CORPUSCULAR HGB CONC 34.4 % (32.0-36.0); MEAN PLATELET VOLUME 8.4 FL (7.0-11.0); MONO % 7.5 % (0.0-8.0); MONOCYTE # 0.5 TH/MM3 (0-0.9); NEUT % 59.7 % (16.0-70.0); PLATELET COUNT 226 TH/MM3 (150-450); RED BLOOD COUNT 4.42 MIL/MM3 (4.50-5.90); RED CELL DISTRIBUTION WIDTH 12.5 % (11.6-17.2); WHITE BLOOD COUNT 6.7 TH/MM3 (4.0-11.0)
[2017-07-09 08:00] VITALS: BP 115/67; PULSE 82; RESP 18; TEMP 97.7; O2SAT 95
[2017-07-09 08:47] LABS: BICARBONATE 28.7 MEQ/L (21.0-32.0); CALCIUM 8.5 MG/DL (8.5-10.1); CREATININE 0.92 MG/DL (0.60-1.30)
[2017-07-09 08:48] LABS: PHENYTOIN (DILANTIN) 23.4 MCG/ML (10.0-20.0)
[2017-07-09] MEDS: DOCUSATE SODIUM 50 MG/SENNA 8.6 MG TAB PO SCH (10:07)
[2017-07-09] MEDS: lamoTRIgine 100 MG TAB PO SCH (10:07)
[2017-07-09] MEDS: LACOSAMIDE 100 MG TAB PO SCH (10:07)
[2017-07-09] MEDS: SODIUM CHLORIDE 0.9% FLUSH 10 ML FLUSH IV FLUSH SCH (10:08)
--- NOTE | 2017-07-09 11:18 | HHI.PR ---
Subjective Remarks F/u Sz. Doing ok dilantin 23 no complaints no dizziness ambulating steady. States he only takes Seroquel 50 mg BID dw RN Objective Vitals Vital Signs Date Time Temp Pulse Resp B/P (MAP) Pulse Ox O2 Delivery O2 Flow Rate FiO2 07/09/17 08:00 97.7 82 18 115/67 (83) 95 07/09/17 04:14 97.8 81 16 107/62 (77) 98 07/09/17 00:00 98.2 74 16 116/65 (82) 98 07/08/17 21:39 98.8 90 18 126/82 (97) 98 07/08/17 12:00 97.1 80 20 104/55 (71) 96 I/O 07/08/17 07/08/17 07/08/17 07/09/17 07/09/17 07/09/17 07:00 15:00 23:00 07:00 15:00 23:00 Intake Total 120 ml 720 ml Output Total 950 ml 500 ml 625 ml Balance -830 ml 220 ml -625 ml Intake Oral 720 ml IV Total 120 ml Output Urine Total 950 ml 500 ml 625 ml Result Diagram: 07/09/17 0702 07/09/17 0702 Imaging Last Impressions Head CT 07/07/17 0000 Signed Impressions: Service Date/Time: Friday, July 07, 2017 20:49 - CONCLUSION: 1. No acute intracranial abnormalities. Jim Huerta MD Cervical Spine CT 07/07/17 0000 Signed Impressions: Service Date/Time: Friday, July 07, 2017 20:51 - CONCLUSION: Normal examination for a patient of this age. Jim Huerta MD Objective Remarks GENERAL: male lying in bed, WD WN SKIN: No rashes, ecchymoses or lesions. Cool and dry. CARDIOVASCULAR: Regular rate and rhythm without murmurs, gallops, or rubs. RESPIRATORY: Clear to auscultation. Breath sounds equal bilaterally. No wheezes , rales, or rhonchi. GASTROINTESTINAL: Abdomen soft, non-tender, nondistended. MUSCULOSKELETAL: Extremities without clubbing, cyanosis, or edema. No joint tenderness, effusion, or edema noted. NEUROLOGICAL: Alert and oriented. Nonfocal Procedures none A/P Problem List: (1) Seizures ICD Code: R56.9 - Unspecified convulsions Status: Acute Assessment and Plan 1. Witnessed seizure with history of seizure disorder secondary to noncompliance. Dilantin level less than 0.4 Status post loading dose of Dilantin in the ED Continue home Dilantin and Lamictal. Med list also shows he is on Vimpat and will restart Seizure precautions Ativan prn Transfer to [facility] once Dilantin level therapeutic- 23 no complaints no dizziness ambulating steady hold tonight's dose and restart in the morning with follow-up levels . Monitor LFTs AST slightly up 2. Specified psychiatric disorder/Lopez act/suicidal ideation Patient reported intention to harm himself to police after altercation at [facility] Has psychiatric history although his is not aware of diagnoses Psychiatry consulted, appreciate recommendations ct BA and restart Seroquel 3. History of cocaine/alcohol abuse [facility] protocol Multivitamin, thiamine, folate FEN Heart healthy diet Electrolytes: monitor and replete prn Discharge Planning Discharge patient to home Condition on discharge: Improved Regular Diet as tolerated Ad Marlene activity no driving Rx written: None Follow-up with primary care physician, repeat Dilantin 07/12 Jose G Diaz MD Jul 09, 2017 11:18
[2017-07-09] MEDS ORDERED: SERO25TA PO (11:29)
--- NOTE | 2017-07-09 11:29 | HHI.DCPOC ---
Discharge Care Plan Diagnosis: (1) Seizures Goals to Promote Your Health * To prevent worsening of your condition and complications * To maintain your health at the optimal level Directions to Meet Your Goals Take your medications as prescribed Follow your dietary instruction Follow activity as directed Keep your appointments as scheduled Take your immunizations and boosters as scheduled If your symptoms worsen call your PCP, if no PCP go to Urgent Care Center or Emergency Room Smoking is Dangerous to Your Health. Avoid second hand smoke Call the 24-hour hour crisis hotline for domestic abuse at Yanet Carmona PA-C Jul 09, 2017 11:29
[2017-07-09 11:40] VITALS: BP 131/69; PULSE 88; RESP 17; TEMP 96.7; O2SAT 99
--- NOTE | 2017-07-09 13:36 | HHI.PYPN ---
Subjective Remarks The patient was seen today for psychiatric reevaluation. Chart was reviewed. On psychiatric evaluation I find a patient that is calm, cooperative and pleasant. She reported that he feels much better today, he is very happy of the result of medical care in [place]. Patient reports that for the last 5 days after an argument with his significant other he decided to get out of his house and basically is sleep his car every night. He says that he has been going regularly to his jobs, but he was not going home. He admits that he has been drinking alcohol and using drugs. At this moment the patient denies depressive symptoms, he denies anxiety, he denies chi, denies psychosis. He denies suicidal and homicidal ideation, he denies visual and auditory hallucinations. Patient is logical, coherent and relevant, oriented 3. No withdrawal, no agitation or aggressive behavior noted. Review of Systems Constitutional: DENIES: Diaphoretic episodes, Fatigue, Fever, Weight gain, Weight loss, Chills, Dizziness, Change in appetite, Night Sweats Endocrine: DENIES: Heat/cold intolerance, Polydipsia, Polyuria, Polyphagia Eyes: DENIES: Blurred vision, Diplopia, Eye inflammation, Eye pain, Vision loss , Photosensitivity, Double Vision Ears, nose, mouth, throat: DENIES: Tinnitus, Hearing loss, Vertigo, Nasal discharge, Oral lesions, Throat pain, Hoarseness, Ear Pain, Running Nose, Epistaxis, Sinus Pain, Toothache, Odynophagia Respiratory: DENIES: Apneas, Cough, Snoring, Wheezing, Hemoptysis, Sputum production, Shortness of breath Cardiovascular: DENIES: Chest pain, Palpitations, Syncope, Dyspnea on Exertion , PND, Lower Extremity Edema, Orthopnea, Claudication Gastrointestinal: DENIES: Abdominal pain, Black stools, Bloody stools, Constipation, Diarrhea, Nausea, Vomiting, Difficulty Swallowing, Anorexia Genitourinary: DENIES: Sexual dysfunction, Urinary frequency, Urinary incontinence, Urgency, Hematuria, Dysuria, Nocturia, Penile Discharge, Testicular Pain, Testicular Swelling Musculoskeletal: DENIES: Joint pain, Muscle aches, Stiffness, Joint Swelling, Back pain, Neck pain Integumentary: DENIES: Abnormal pigmentation, Nail changes, Pruritus, Rash Hematologic/lymphatic: DENIES: Bruising, Lymphadenopathy Immunologic/allergic: DENIES: Eczema, Urticaria Neurologic: DENIES: Abnormal gait, Headache, Localized weakness, Paresthesias, Seizures, Speech Problems, Tremor, Poor Balance Psychiatric: DENIES: Anxiety, Confusion, Mood changes, Depression, Hallucinations, Agitation, Suicidal Ideation, Homicidal Ideation, Delusions Mental Status Examination Appearance: Appropriate Consciousness: Alert Orientation: x4 Motor Activity: Normal gait Speech: Unremarkable Language: Adequate Fund of Knowledge: Adequate Attention and Concentration: Adequate Memory: Unremarkable Mood: Appropriate Affect: Blunt Thought Process & Associations: Intact Thought Content: Appropriate Hallucination Type: None Delusion Type: None Suicidal Ideation: No Suicidal Plan: No Suicidal Intention: No Homicidal Ideation: No Homicidal Plan: No Homicidal Intention: No Insight: Fair Judgment: Impulsive Results Labs Test 07/08/17 14:30 07/09/17 07:02 Urine Opiates Screen NEG Urine Barbiturates Screen NEG Urine Amphetamines Screen NEG Urine Benzodiazepines Screen NEG Urine Cocaine Screen POS Urine Cannabinoids Screen POS White Blood Count 6.7 TH/MM3 Red Blood Count 4.42 MIL/MM3 Hemoglobin 13.3 GM/DL Hematocrit 38.6 % Mean Corpuscular Volume 87.4 FL Mean Corpuscular Hemoglobin 30.1 PG Mean Corpuscular Hemoglobin Concent 34.4 % Red Cell Distribution Width 12.5 % Platelet Count 226 TH/MM3 Mean Platelet Volume 8.4 FL Neutrophils (%) (Auto) 59.7 % Lymphocytes (%) (Auto) 29.7 % Monocytes (%) (Auto) 7.5 % Eosinophils (%) (Auto) 2.1 % Basophils (%) (Auto) 1.0 % Neutrophils # (Auto) 4.0 TH/MM3 Lymphocytes # (Auto) 2.0 TH/MM3 Monocytes # (Auto) 0.5 TH/MM3 Eosinophils # (Auto) 0.1 TH/MM3 Basophils # (Auto) 0.1 TH/MM3 CBC Comment DIFF FINAL Differential Comment Blood Urea Nitrogen 12 MG/DL Creatinine 0.92 MG/DL Random Glucose 84 MG/DL Calcium Level 8.5 MG/DL Sodium Level 143 MEQ/L Potassium Level 3.8 MEQ/L Chloride Level 109 MEQ/L Carbon Dioxide Level 28.7 MEQ/L Anion Gap 5 MEQ/L Estimat Glomerular Filtration Rate 91 ML/MIN Phenytoin (Dilantin) Level 23.4 MCG/ML Vitals/IOs Vital Signs Date Time Temp Pulse Resp B/P (MAP) Pulse Ox O2 Delivery O2 Flow Rate FiO2 07/09/17 11:40 96.7 88 17 131/69 (89) 99 Assessment & Plan Problem List: (1) Post-ictal confusion ICD Codes: F05 - Delirium due to known physiological condition Assessment & Plan: Of my examination today the patient does not present any significant evidence of depression, anxiety, chi or psychosis. Denies suicidal and homicidal ideation, he denies visual and auditory hallucinations. He is oriented 3. No confusion, no delirium noted. He does not meet criteria for involuntary psychiatric admission. He benefits of rehabilitation for addiction, he seems to have the plan of going back to [facility]. I will lift the Lopez act. Assessment & Plan Estimated LOS: days Justification for Cont. Inpt. No indication of psychiatric admission at this moment. Sander Pedersen MD Jul 09, 2017 13:36
[2017-07-09] MEDS ORDERED: QUEtiapine FUMARATE 25 MG TAB PO SCH (21:00)
[2017-07-11] MEDS ORDERED: THIAMINE HCL 100 MG TAB PO SCH (09:00)
== END 2017-07-09 15:09 | disposition home or self-care (01) ==
LOC: NEPC 20:02 → NEDA 22:40 → NEDH 07-08 04:14 → NEPFCDU 07-08 13:13
PROVIDERS: ADMIT Internal Medicine; ATTEND Internal Medicine
DX: G40.909 Epilepsy, unspecified, not intractable, without status epilepticus (principal); F05 Delirium due to known physiological condition; F14.10 Cocaine abuse, uncomplicated; J45.909 Unspecified asthma, uncomplicated; R45.851 Suicidal ideations; Z72.0 Tobacco use; Z59.0 Homelessness; Z79.899 Other long term (current) drug therapy; Z91.14 Patient's other noncompliance with medication regimen
CPT/HCPCS: 70450; 72125; 80048; 80185; 80307; 84439; 84481; 85025; 93005; 96365; 96366; 96367; 96368; 97162; 99285; G0378; G8987; G8988; J1165; J3411; J7040; 80053; 84443; 99284

== ENCOUNTER 2017-07-11 10:08 | Emergency (ER) | payer MEDICAID ==
[~2017-07-11 10:08] MED LIST changes: +LAMO100 PO; -LAMO100T PO; -QUET1TAB10 PO; +SERO25TA PO
[2017-07-11 10:14] VITALS: BP 134/62; PULSE 78; RESP 20; TEMP 98.5; O2SAT 98
--- NOTE | 2017-07-11 10:49 | PD ---
HPI Chief Complaint: Medical Clearance Time Seen by Provider: 10:20 Travel History International Travel<30 days: No Contact w/Intl Traveler<30days: No Traveled to known affect area: No History of Present Illness HPI 42-year-old male was sent from [facility] for medical clearance. Patient has history of substance abuse and seizure. Patient was admitted to [facility] June 29 and discharged 2 days ago for noncompliant with medication for seizure, substance abuse. Patient was given prescription for Dilantin. Patient states that he dropped off the prescription at [facility] and has not picking it up since then. Patient has not had any Dilantin for the last 2 days. Patient was admitted to [facility] for substance abuse. Patient states that he used cocaine and heroin this morning. Patient was brought to the ED for evaluation of a Dilantin level and possible started back on Dilantin. Patient denies any headache. Patient denies any chest pain or shortness of breath. Patient denies abdominal pain. Patient denies any nausea vomiting diarrhea. PFSH Past Medical History Asthma: Yes Depression: Yes (MDD) Diabetes: No Diminished Hearing: No Neurologic: Yes (HX SZ) Psychiatric: Yes Schizophrenia: Yes Seizures: Yes Social History Alcohol Use: Yes Tobacco Use: Yes Substance Use: Yes Allergies-Medications (Allergen,Severity, Reaction): Coded Allergies: No Known Allergies (Verified Allergy, Unknown, 07/11/17) Reported Meds & Prescriptions Reported Meds & Active Scripts Active Seroquel (Quetiapine Fumarate) 25 Mg Tab 50 Mg PO BID Phenytoin Extended 200 Mg Cap 200 Mg PO BID Reported Lamictal (Lamotrigine) 100 Mg Tab 100 Mg PO BID Vimpat (Lacosamide) 100 Mg Tab 100 Mg PO BID Ibuprofen 200 Mg Tab 200 Mg PO Q6H PRN Review of Systems General / Constitutional: No: Fever Eyes: No: Visual changes HENT: No: Headaches Cardiovascular: No: Chest Pain or Discomfort Respiratory: No: Shortness of Breath Gastrointestinal: No: Abdominal Pain Genitourinary: No: Dysuria Musculoskeletal: No: Pain Skin: No Rash Neurologic: No: Weakness Psychiatric: No: Depression Endocrine: No: Polydipsia Hematologic/Lymphatic: No: Easy Bruising Physical Exam Narrative GENERAL: Well-nourished, well-developed patient. SKIN: Focused skin assessment warm/dry. HEAD: Normocephalic. EYES: No scleral icterus. No injection or drainage. NECK: Supple, trachea midline. No JVD or lymphadenopathy. CARDIOVASCULAR: Regular rate and rhythm without murmurs, gallops, or rubs. RESPIRATORY: Breath sounds equal bilaterally. No accessory muscle use. GASTROINTESTINAL: Abdomen soft, non-tender, nondistended. MUSCULOSKELETAL: No cyanosis, or edema. BACK: Nontender without obvious deformity. No CVA tenderness. Neurologic exam normal. Data Data Last Documented VS Vital Signs Date Time Temp Pulse Resp B/P (MAP) Pulse Ox O2 Delivery O2 Flow Rate FiO2 07/11/17 10:14 98.5 78 20 134/62 (86) 98 Orders Orders Phenytoin (Dilantin) (07/11/17 10:21) Basic Metabolic Panel (Bmp) (07/11/17 10:22) Labs Laboratory Tests Test 07/11/17 10:35 Blood Urea Nitrogen 19 MG/DL Creatinine 1.13 MG/DL Random Glucose 114 MG/DL Calcium Level 8.9 MG/DL Sodium Level 139 MEQ/L Potassium Level 3.8 MEQ/L Chloride Level 103 MEQ/L Carbon Dioxide Level 26.0 MEQ/L Anion Gap 10 MEQ/L Estimat Glomerular Filtration Rate 72 ML/MIN Phenytoin (Dilantin) Level 14.1 MCG/ML MDM Medical Decision Making Medical Screen Exam Complete: Yes Emergency Medical Condition: Yes Interpretation(s) 11:21 AM. Dilantin 14.1. Differential Diagnosis Differential diagnosis including noncompliance with medication for seizure. Narrative Course 42-year-old male with history of seizure, noncompliant with medication. Patient also has history of substance abuse. Diagnosis Primary Impression: Seizures Patient Instructions: General Instructions Additional Instructions: Take Dilantin as directed. Follow-up with personal physician. Return as needed. Patient is at [facility] for substance abuse. Med/Other Pt SpecificInfo: No Change to Meds Disposition: 01 DISCHARGE HOME Condition: Stable Brandyn Conrad MD Jul 11, 2017 10:49
[2017-07-11 11:05] LABS: CALCIUM 8.9 MG/DL (8.5-10.1); CREATININE 1.13 MG/DL (0.60-1.30)
== END 2017-07-11 11:31 | disposition home or self-care (01) ==
LOC: NEPD 10:08
DX: R56.9 Unspecified convulsions (principal); F20.9 Schizophrenia, unspecified; Z72.0 Tobacco use; Z91.14 Patient's other noncompliance with medication regimen
CPT/HCPCS: 80048; 80185; 99283

== ENCOUNTER 2017-11-02 10:36 | Emergency (ER) | payer MEDICAID ==
[~2017-11-02] VITALS: Ht 160 cm; Wt 64.0 kg
[2017-11-02 10:51] VITALS: BP 111/68; PULSE 102; RESP 15; TEMP 98.4; O2SAT 98
[2017-11-02] MEDS ORDERED: KEPP10002 PO (11:15)
[2017-11-02] MEDS ORDERED: BUPR8SUB SL (11:16)
--- NOTE | 2017-11-02 11:23 | PD ---
HPI Chief Complaint: Medical Clearance Time Seen by Provider: 11:04 Travel History International Travel<30 days: No Contact w/Intl Traveler<30days: No Traveled to known affect area: No History of Present Illness HPI 42-year-old male complains of body ache. Patient came to [facility] today states that he has ideas of wanting to kill his . [facility] referred patient to ED for evaluation. Patient states that he has history of seizure has not taken his Dilantin for the past several days. Patient also has been taking Subutex except for the past 2 days. Patient denies any headache. Patient denies any chest pain or shortness of breath. Patient denies abdominal pain. Patient denies any extremity injury. Medical record shows that patient was on Dilantin and Seroquel recently. Patient denies any alcohol or drug abuse. PFSH Past Medical History Asthma: Yes Bipolar Disorder: Yes Depression: Yes (MDD) Diabetes: No Diminished Hearing: No Neurologic: Yes (HX SZ) Psychiatric: Yes Schizophrenia: Yes Seizures: Yes Past Surgical History Surgical History: No Previous Surgery Social History Alcohol Use: No Tobacco Use: Yes (1pack/3days) Substance Use: Yes (cocaine, heroin) Allergies-Medications (Allergen,Severity, Reaction): Coded Allergies: No Known Allergies (Verified Allergy, Unknown, 11/02/17) Reported Meds & Prescriptions Reported Meds & Active Scripts Active Seroquel (Quetiapine Fumarate) 25 Mg Tab 50 Mg PO BID Phenytoin Extended 200 Mg Cap 200 Mg PO BID Reported Buprenorphine (Buprenorphine HCl) 8 Mg Subl 8 Mg SL BID Keppra (Levetiracetam) 1,000 Mg Tab 1,000 Mg PO BID Ibuprofen 200 Mg Tab 200 Mg PO Q6H PRN Review of Systems General / Constitutional: No: Fever Eyes: No: Visual changes HENT: No: Headaches Cardiovascular: No: Chest Pain or Discomfort Respiratory: No: Shortness of Breath Gastrointestinal: No: Abdominal Pain Genitourinary: No: Dysuria Musculoskeletal: No: Pain Skin: No Rash Neurologic: No: Weakness Psychiatric: No: Depression Endocrine: No: Polydipsia Hematologic/Lymphatic: No: Easy Bruising Physical Exam Narrative GENERAL: Well-nourished, well-developed patient. SKIN: Focused skin assessment warm/dry. HEAD: Normocephalic. EYES: No scleral icterus. No injection or drainage. NECK: Supple, trachea midline. No JVD or lymphadenopathy. CARDIOVASCULAR: Regular rate and rhythm without murmurs, gallops, or rubs. RESPIRATORY: Breath sounds equal bilaterally. No accessory muscle use. GASTROINTESTINAL: Abdomen soft, non-tender, nondistended. MUSCULOSKELETAL: No cyanosis, or edema. BACK: Nontender without obvious deformity. No CVA tenderness. Neurologic exam normal. Data Data Last Documented VS Vital Signs Date Time Temp Pulse Resp B/P (MAP) Pulse Ox O2 Delivery O2 Flow Rate FiO2 11/02/17 13:19 67 16 119/63 (81) 100 Room Air 11/02/17 10:51 98.4 Orders Orders Complete Blood Count With Diff (11/02/17 11:11) Comprehensive Metabolic Panel (11/02/17 11:11) Phenytoin (Dilantin) (11/02/17 11:11) Iv Access Insert/Monitor (11/02/17 11:11) Drug Screen, Random Urine (11/02/17 11:11) Alcohol (Ethanol) (11/02/17 11:11) Thyroid Stimulating Hormone (11/02/17 11:11) Psych Screen (11/02/17 11:11) Labs Laboratory Tests Test 11/02/17 11:20 White Blood Count 7.6 TH/MM3 Red Blood Count 4.70 MIL/MM3 Hemoglobin 13.7 GM/DL Hematocrit 40.0 % Mean Corpuscular Volume 85.1 FL Mean Corpuscular Hemoglobin 29.2 PG Mean Corpuscular Hemoglobin Concent 34.3 % Red Cell Distribution Width 12.6 % Platelet Count 211 TH/MM3 Mean Platelet Volume 8.8 FL Neutrophils (%) (Auto) 69.7 % Lymphocytes (%) (Auto) 21.3 % Monocytes (%) (Auto) 6.4 % Eosinophils (%) (Auto) 1.4 % Basophils (%) (Auto) 1.2 % Neutrophils # (Auto) 5.3 TH/MM3 Lymphocytes # (Auto) 1.6 TH/MM3 Monocytes # (Auto) 0.5 TH/MM3 Eosinophils # (Auto) 0.1 TH/MM3 Basophils # (Auto) 0.1 TH/MM3 CBC Comment DIFF FINAL Differential Comment Blood Urea Nitrogen 14 MG/DL Creatinine 1.13 MG/DL Random Glucose 93 MG/DL Total Protein 7.3 GM/DL Albumin 4.1 GM/DL Calcium Level 8.8 MG/DL Alkaline Phosphatase 49 U/L Aspartate Amino Transf (AST/SGOT) 29 U/L Alanine Aminotransferase (ALT/SGPT) 29 U/L Total Bilirubin 0.5 MG/DL Sodium Level 143 MEQ/L Potassium Level 3.7 MEQ/L Chloride Level 107 MEQ/L Carbon Dioxide Level 26.7 MEQ/L Anion Gap 9 MEQ/L Estimat Glomerular Filtration Rate 72 ML/MIN Thyroid Stimulating Hormone 3rd Gen 0.534 uIU/ML Phenytoin (Dilantin) Level LESS THAN 0.4 MCG/ML Ethyl Alcohol Level LESS THAN 3 MG/DL MDM Medical Decision Making Medical Screen Exam Complete: Yes Emergency Medical Condition: Yes Interpretation(s) 1514 p.m. CBC within normal limits. CMP within normal limits. TSH normal. Phenytoin less than 0.4. Alcohol negative. Differential Diagnosis Differential diagnosis including adjustment disorder, seizure disorder, noncompliant. Narrative Course 42-year-old male with homicidal threat, history of seizure and noncompliant with medication. Brandyn Conrad MD November 02, 2017 11:23
[2017-11-02 11:46] LABS: AUTOMATED NEUTROPHIL # 5.3 TH/MM3 (1.8-7.7); BASOPHIL # 0.1 TH/MM3 (0-0.2); BASOPHIL % 1.2 % (0.0-2.0); EOSINOPHIL # 0.1 TH/MM3 (0-0.4); EOSINOPHIL % 1.4 % (0.0-4.0); HEMOGLOBIN 13.7 GM/DL (13.0-17.0); LYMPH % 21.3 % (9.0-44.0); LYMPHOCYTE # 1.6 TH/MM3 (1.0-4.8); MEAN CELL VOLUME 85.1 FL (80.0-100.0); MEAN CORPUSCULAR HEMOGLOBIN 29.2 PG (27.0-34.0); MEAN CORPUSCULAR HGB CONC 34.3 % (32.0-36.0); MEAN PLATELET VOLUME 8.8 FL (7.0-11.0); MONO % 6.4 % (0.0-8.0); MONOCYTE # 0.5 TH/MM3 (0-0.9); NEUT % 69.7 % (16.0-70.0); PLATELET COUNT 211 TH/MM3 (150-450); RED CELL DISTRIBUTION WIDTH 12.6 % (11.6-17.2); WHITE BLOOD COUNT 7.6 TH/MM3 (4.0-11.0)
[2017-11-02 12:06] LABS: ALBUMIN 4.1 GM/DL (3.4-5.0); ALT (GPT) 29 U/L (12-78); AST (GOT) 29 U/L (15-37); BICARBONATE 26.7 MEQ/L (21.0-32.0); CALCIUM 8.8 MG/DL (8.5-10.1); CHLORIDE 107 MEQ/L (98-107); CREATININE 1.13 MG/DL (0.60-1.30); GLOMERULAR FILTRATION RATE 72 ML/MIN (>89); GLUCOSE,RANDOM 93 MG/DL (74-106); SODIUM (NA) 143 MEQ/L (136-145)
[2017-11-02 12:12] LABS: ALKALINE PHOSPHATASE 49 U/L (45-117); BLOOD UREA NITROGEN 14 MG/DL (7-18); PHENYTOIN (DILANTIN) LESS THAN 0.4 MCG/ML (10.0-20.0); TOTAL BILIRUBIN ADULT 0.5 MG/DL (0.2-1.0); TOTAL PROTEIN 7.3 GM/DL (6.4-8.2)
[2017-11-02 13:19] VITALS: BP 119/63; PULSE 67; RESP 16; O2SAT 100
[2017-11-02] MEDS ORDERED: FOSPHENYTOIN INJ 1,000 MGPE in SODIUM CHLORIDE 0.9% INJ 50 ML IV ONE (15:15)
[2017-11-02 15:45] VITALS: BP 107/77; PULSE 70; RESP 16; O2SAT 98
[2017-11-02] MEDS ORDERED: ZANT150T2 PO (21:40)
[2017-11-02] MEDS ORDERED: LAMO25 PO (21:40)
--- NOTE | 2017-11-02 23:29 | PD ---
Physical Exam Narrative GENERAL: SKIN: Warm and dry. HEAD: Atraumatic. Normocephalic. EYES: Pupils equal and round. No scleral icterus. No injection or drainage. ENT: No nasal bleeding or discharge. Mucous membranes pink and moist. NECK: Trachea midline. No JVD. CARDIOVASCULAR: Regular rate and rhythm. RESPIRATORY: No accessory muscle use. Clear to auscultation. Breath sounds equal bilaterally. GASTROINTESTINAL: Abdomen soft, non-tender, nondistended. Hepatic and splenic margins not palpable. MUSCULOSKELETAL: Extremities without clubbing, cyanosis, or edema. No obvious deformities. NEUROLOGICAL: Awake and alert. No obvious cranial nerve deficits. Motor grossly within normal limits. Five out of 5 muscle strength in the arms and legs. Normal speech. PSYCHIATRIC: Appropriate mood and affect; insight and judgment normal. Data Data Last Documented VS Vital Signs Date Time Temp Pulse Resp B/P (MAP) Pulse Ox O2 Delivery O2 Flow Rate FiO2 11/02/17 15:45 70 16 107/77 (87) 98 11/02/17 13:19 Room Air 11/02/17 10:51 98.4 Orders Orders Complete Blood Count With Diff (11/02/17 11:11) Comprehensive Metabolic Panel (11/02/17 11:11) Phenytoin (Dilantin) (11/02/17 11:11) Iv Access Insert/Monitor (11/02/17 11:11) Drug Screen, Random Urine (11/02/17 11:11) Alcohol (Ethanol) (11/02/17 11:11) Thyroid Stimulating Hormone (11/02/17 11:11) Psych Screen (11/02/17 11:11) Fosphenytoin Inj (Cerebyx Inj) (11/02/17 15:15) Labs Laboratory Tests Test 11/02/17 11:20 White Blood Count 7.6 TH/MM3 Red Blood Count 4.70 MIL/MM3 Hemoglobin 13.7 GM/DL Hematocrit 40.0 % Mean Corpuscular Volume 85.1 FL Mean Corpuscular Hemoglobin 29.2 PG Mean Corpuscular Hemoglobin Concent 34.3 % Red Cell Distribution Width 12.6 % Platelet Count 211 TH/MM3 Mean Platelet Volume 8.8 FL Neutrophils (%) (Auto) 69.7 % Lymphocytes (%) (Auto) 21.3 % Monocytes (%) (Auto) 6.4 % Eosinophils (%) (Auto) 1.4 % Basophils (%) (Auto) 1.2 % Neutrophils # (Auto) 5.3 TH/MM3 Lymphocytes # (Auto) 1.6 TH/MM3 Monocytes # (Auto) 0.5 TH/MM3 Eosinophils # (Auto) 0.1 TH/MM3 Basophils # (Auto) 0.1 TH/MM3 CBC Comment DIFF FINAL Differential Comment Blood Urea Nitrogen 14 MG/DL Creatinine 1.13 MG/DL Random Glucose 93 MG/DL Total Protein 7.3 GM/DL Albumin 4.1 GM/DL Calcium Level 8.8 MG/DL Alkaline Phosphatase 49 U/L Aspartate Amino Transf (AST/SGOT) 29 U/L Alanine Aminotransferase (ALT/SGPT) 29 U/L Total Bilirubin 0.5 MG/DL Sodium Level 143 MEQ/L Potassium Level 3.7 MEQ/L Chloride Level 107 MEQ/L Carbon Dioxide Level 26.7 MEQ/L Anion Gap 9 MEQ/L Estimat Glomerular Filtration Rate 72 ML/MIN Thyroid Stimulating Hormone 3rd Gen 0.534 uIU/ML Phenytoin (Dilantin) Level LESS THAN 0.4 MCG/ML Ethyl Alcohol Level LESS THAN 3 MG/DL MDM Medical Record Reviewed: Yes Supervised Visit with ANA: No Narrative Course Patient has been seen by his psychiatric team, and their decision was that this patient is not a candidate for Lopez act. That he indeed was not homicidal or suicidal at all. Most likely this was secondary to substance-induced, and was witnessed at bedside to be very loving, kissing, brought in food and brought her child over as well and all were interacting positively amongst each other. There is a decision of the psychiatric team that this patient does not meet criteria and can therefore be discharged and can follow up with [facility] in the a.m.... The by the way offered to pick him up and take him to [facility]. Diagnosis Primary Impression: Substance abuse Additional Impression: Substance-induced mood disorder Royce Cruz MD November 02, 2017 23:29
== END 2017-11-03 06:38 | disposition home or self-care (01) ==
LOC: NEPD 10:36
DX: F19.14 Other psychoactive substance abuse with psychoactive substance-induced mood disorder (principal); F17.200 Nicotine dependence, unspecified, uncomplicated; G40.909 Epilepsy, unspecified, not intractable, without status epilepticus; F20.9 Schizophrenia, unspecified; F31.9 Bipolar disorder, unspecified
CPT/HCPCS: 80053; 80185; 80307; 84443; 85025; 96365; 99283; Q2009

== ENCOUNTER 2017-11-06 08:00 | Emergency (ER) | payer MEDICAID, OTHER ==
[~2017-11-06] VITALS: Ht 167.6 cm; Wt 66.0 kg
[~2017-11-06 08:00] MED LIST changes: +BUPR8SUB SL; +KEPP10002 PO; -LACO100 PO; -LAMO100 PO; +LAMO25 PO; +ZANT150T2 PO
[2017-11-06 08:08] VITALS: BP 140/90; PULSE 97; RESP 18; TEMP 98.4; O2SAT 100
--- NOTE | 2017-11-06 08:29 | PD ---
HPI Chief Complaint: Psychiatric Symptoms Time Seen by Provider: 08:25 Travel History International Travel<30 days: No Contact w/Intl Traveler<30days: No Traveled to known affect area: No History of Present Illness HPI 42-year-old male with a history of bipolar disorder, suicidal ideations, depression presents emergency department via [place] police department as a pacheco act for suicidal ideations. Says that the called the police department today stating he was suicidal and she then left for work. Patient was apparently home alone upon their arrival. Patient is slow and reluctant to interact with me but does admit to depression and suicidal ideations. He does not tell me a plan. He denies illicit or other drug use. Patient does not want to discuss his or home life. PFSH Past Medical History Asthma: Yes Bipolar Disorder: Yes Depression: Yes (MDD) Diabetes: No Diminished Hearing: No Neurologic: Yes (HX SZ) Psychiatric: Yes Schizophrenia: Yes Seizures: Yes ?: Not Social History Alcohol Use: No Tobacco Use: Yes (1pack/3days) Substance Use: Yes (cocaine, heroin) Allergies-Medications (Allergen,Severity, Reaction): Coded Allergies: No Known Allergies (Verified Allergy, Unknown, 11/06/17) Reported Meds & Prescriptions Reported Meds & Active Scripts Active Seroquel (Quetiapine Fumarate) 25 Mg Tab 50 Mg PO BID Phenytoin Extended 200 Mg Cap 200 Mg PO BID Reported Zantac (Ranitidine HCl) 150 Mg Tab 150 Mg PO DAILY Lamictal (Lamotrigine) 25 Mg Tab 25 Mg PO BID Keppra (Levetiracetam) 1,000 Mg Tab 1,000 Mg PO BID Ibuprofen 200 Mg Tab 200 Mg PO Q6H PRN Review of Systems Except as stated in HPI: all other systems reviewed are Neg Physical Exam Narrative GENERAL: Well-developed, well-nourished sad appearing SKIN: Focused skin assessment warm/dry. HEAD: Atraumatic. Normocephalic. EYES: Pupils equal and round. No scleral icterus. No injection or drainage. ENT: No nasal bleeding or discharge. Mucous membranes pink and moist. NECK: Trachea midline. No JVD. CARDIOVASCULAR: Regular rate and rhythm. No murmur appreciated. RESPIRATORY: No accessory muscle use. Clear to auscultation. Breath sounds equal bilaterally. MUSCULOSKELETAL: No obvious deformities. No clubbing. No cyanosis. No edema. NEUROLOGICAL: Awake and alert. No obvious cranial nerve deficits. Motor grossly within normal limits. Normal speech. PSYCHIATRIC: Sad appearing, reluctant to interact with me but pleasant otherwise Data Data Last Documented VS Vital Signs Date Time Temp Pulse Resp B/P (MAP) Pulse Ox O2 Delivery O2 Flow Rate FiO2 11/07/17 10:00 98.4 88 18 134/88 (103) 100 11/07/17 06:33 Room Air Orders Orders Complete Blood Count With Diff (11/06/17 08:29) Comprehensive Metabolic Panel (11/06/17 08:29) Thyroid Stimulating Hormone (11/06/17 08:29) Phenytoin (Dilantin) (11/06/17 08:29) Psych Screen (11/06/17 08:29) Phenytoin (Dilantin) (11/06/17 10:00) Levetiracetam (Keppra) (11/06/17 10:00) Lamotrigine (Lamictal) (11/06/17 10:00) Diet Regular Basic (11/06/17 Lunch) Drug Screen, Random Urine (11/06/17 11:50) Diet Regular Basic (11/06/17 Dinner) Ibuprofen (Motrin) (11/07/17 00:45) Diet Regular Basic (11/07/17 Breakfast) Ed Discharge Order (11/07/17 10:06) Labs Laboratory Tests Test 11/06/17 08:25 11/06/17 14:40 White Blood Count 8.6 TH/MM3 Red Blood Count 4.53 MIL/MM3 Hemoglobin 13.8 GM/DL Hematocrit 38.6 % Mean Corpuscular Volume 85.1 FL Mean Corpuscular Hemoglobin 30.4 PG Mean Corpuscular Hemoglobin Concent 35.7 % Red Cell Distribution Width 12.5 % Platelet Count 230 TH/MM3 Mean Platelet Volume 9.1 FL Neutrophils (%) (Auto) 83.7 % Lymphocytes (%) (Auto) 11.5 % Monocytes (%) (Auto) 3.9 % Eosinophils (%) (Auto) 0.1 % Basophils (%) (Auto) 0.8 % Neutrophils # (Auto) 7.2 TH/MM3 Lymphocytes # (Auto) 1.0 TH/MM3 Monocytes # (Auto) 0.3 TH/MM3 Eosinophils # (Auto) 0.0 TH/MM3 Basophils # (Auto) 0.1 TH/MM3 CBC Comment DIFF FINAL Differential Comment Blood Urea Nitrogen 7 MG/DL Creatinine 0.92 MG/DL Random Glucose 111 MG/DL Total Protein 8.2 GM/DL Albumin 4.5 GM/DL Calcium Level 9.5 MG/DL Alkaline Phosphatase 62 U/L Aspartate Amino Transf (AST/SGOT) 16 U/L Alanine Aminotransferase (ALT/SGPT) 26 U/L Total Bilirubin 0.4 MG/DL Sodium Level 138 MEQ/L Potassium Level 3.4 MEQ/L Chloride Level 105 MEQ/L Carbon Dioxide Level 24.1 MEQ/L Anion Gap 9 MEQ/L Estimat Glomerular Filtration Rate 91 ML/MIN Thyroid Stimulating Hormone 3rd Gen 0.297 uIU/ML Phenytoin (Dilantin) Level 2.4 MCG/ML Urine Opiates Screen NEG Urine Barbiturates Screen NEG Urine Amphetamines Screen NEG Urine Benzodiazepines Screen NEG Urine Cocaine Screen POS Urine Cannabinoids Screen NEG MDM Medical Decision Making Medical Screen Exam Complete: Yes Emergency Medical Condition: Yes Differential Diagnosis SI, depression, anxiety, malingering, polysubstance use. Narrative Course 42-year-old male with a history of bipolar disorder, suicidal ideations, depression presents emergency department via [place] police department as a pacheco act for suicidal ideations. Says that the called the police department today stating he was suicidal and she then left for work. Patient was apparently home alone upon their arrival. Patient is slow and reluctant to interact with me but does admit to depression and suicidal ideations. He does not tell me a plan. He denies illicit or other drug use. Patient does not want to discuss his . He has not taken his medication for several days. Vital signs are stable. Physical exam demonstrates a well-developed, well-nourished 42-year-old male appearing sad. Patient somewhat reluctant to interact with me however, I do not notice any overt intoxication or evidence of substance use. Labs ordered. Mild decrease in TSH from 2 days ago. Pt will be given lamictal, phenytoin, and keppra for seizure disorder, to prevent seizure while in the ED. He admits to not taking his medication. He is medically cleared to see psych. Psych evaluated this patient and he will be discharged to [facility] for further treatment and evaluation. Diagnosis Primary Impression: Depression Qualified Codes: F33.9 - Major depressive disorder, recurrent, unspecified Disposition: 65 DISC TO PSYCH CARE FACILITY Condition: Stable Justice,Juanita REDDY November 06, 2017 08:29
[2017-11-06 08:53] LABS: AUTOMATED NEUTROPHIL # 7.2 TH/MM3 (1.8-7.7); BASOPHIL # 0.1 TH/MM3 (0-0.2); BASOPHIL % 0.8 % (0.0-2.0); EOSINOPHIL % 0.1 % (0.0-4.0); HEMATOCRIT 38.6 % (39.0-51.0); HEMOGLOBIN 13.8 GM/DL (13.0-17.0); LYMPH % 11.5 % (9.0-44.0); MEAN CELL VOLUME 85.1 FL (80.0-100.0); MEAN CORPUSCULAR HEMOGLOBIN 30.4 PG (27.0-34.0); MEAN CORPUSCULAR HGB CONC 35.7 % (32.0-36.0); MEAN PLATELET VOLUME 9.1 FL (7.0-11.0); MONO % 3.9 % (0.0-8.0); MONOCYTE # 0.3 TH/MM3 (0-0.9); NEUT % 83.7 % (16.0-70.0); PLATELET COUNT 230 TH/MM3 (150-450); RED BLOOD COUNT 4.53 MIL/MM3 (4.50-5.90); RED CELL DISTRIBUTION WIDTH 12.5 % (11.6-17.2); WHITE BLOOD COUNT 8.6 TH/MM3 (4.0-11.0)
[2017-11-06 09:14] LABS: ALBUMIN 4.5 GM/DL (3.4-5.0); AST (GOT) 16 U/L (15-37); BICARBONATE 24.1 MEQ/L (21.0-32.0); BLOOD UREA NITROGEN 7 MG/DL (7-18); CALCIUM 9.5 MG/DL (8.5-10.1); CHLORIDE 105 MEQ/L (98-107); CREATININE 0.92 MG/DL (0.60-1.30); GLOMERULAR FILTRATION RATE 91 ML/MIN (>89); GLUCOSE,RANDOM 111 MG/DL (74-106); SODIUM (NA) 138 MEQ/L (136-145)
[2017-11-06 09:15] LABS: ALT (GPT) 26 U/L (12-78)
[2017-11-06 09:25] LABS: ALKALINE PHOSPHATASE 62 U/L (45-117); PHENYTOIN (DILANTIN) 2.4 MCG/ML (10.0-20.0); TOTAL BILIRUBIN ADULT 0.4 MG/DL (0.2-1.0); TOTAL PROTEIN 8.2 GM/DL (6.4-8.2)
[2017-11-06] MEDS ORDERED: lamoTRIgine 25 MG TAB PO ONE (10:00)
[2017-11-06] MEDS ORDERED: levETIRAcetam 500 MG TAB PO ONE (10:00)
[2017-11-06] MEDS ORDERED: PHENYTOIN SODIUM 100 MG CAP PO ONE (10:00)
[2017-11-06 15:09] VITALS: BP 110/66; PULSE 94; RESP 18; O2SAT 99
[2017-11-06 18:30] VITALS: BP 116/65; PULSE 93; RESP 18; TEMP 98.3; O2SAT 100
[2017-11-07] MEDS ORDERED: IBUPROFEN 600 MG TAB PO ONE (00:45)
[2017-11-07 06:33] VITALS: BP 141/86; PULSE 85; RESP 18; TEMP 99.7; O2SAT 100
[2017-11-07 10:00] VITALS: BP 134/88; PULSE 88; RESP 18; TEMP 98.4; O2SAT 100
== END 2017-11-07 10:51 ==
LOC: NEPJ 08:00
DX: F33.9 Major depressive disorder, recurrent, unspecified (principal); Z79.899 Other long term (current) drug therapy
CPT/HCPCS: 80053; 80185; 80307; 84443; 85025; 99285

== ENCOUNTER 2018-03-07 09:34 | Observation (INO) ==
[2018-03-07] MEDS ORDERED: Sod Chloride 0.9% Inj 1,000 ML IV.SIG ONE (09:52)
[2018-03-07] MEDS ORDERED: Lidocaine 2%/Epinephrine 1:100,000 30 ML MDV INFILTRATN ONE (09:57)
[2018-03-07] MEDS ORDERED: Lidocaine 2%/Epinephrine 1:100,000 Inj 20 ML Vial ONE (10:02)
--- NOTE | 2018-03-07 10:03 | ED ---
HPI General Chief Complaint: Seizure Stated Complaint: Poss seizure Time Seen by Provider: 03/07/18 09:52 History of Present Illness HPI Narrative: The years old male with history of seizure disorder on Dilantin and Keppra noncompliant with his medications, was smoking K2, then he collapsed and had tonic-clonic seizures a few minutes, treated by EMS with Versed. He sustained small laceration 2 cm over his left lower lip. Patient was brought to emergency room on the board and c-collar, postictal, and reactive to pain stimuli, nonverbal at this time. 1800: Patient still lethargic confused secondary to his drugs overdose, Ativan, postictal state. Labs noted Dilantin and Keppra given in loading dose. Patient is here for 8hours needs admission for observation. Case discussed with Dr. Macdonald who accepted the case for the admission under his service. Related Data Home Medications Medication Instructions Recorded Confirmed levetiracetam [Keppra] 500 mg PO Q12H 03/07/18 03/07/18 phenytoin sodium extended 30 mg PO TID 03/07/18 03/07/18 [Dilantin] Allergies Allergy/AdvReac Type Severity Reaction Status Date / Time No Known Allergies Allergy Unverified 03/07/18 09:42 Review of Systems ROS: all other systems reviewed are negative Constitutional Comments: Unresponsive postictal PMFSH Medical History Medical History Seizure (Acute) Social History Social History Substance History: Active Abuse Second Hand Smoke Exposure: No Smoking Status: Current every day smoker Tobacco Type: Cigarettes How Often Do You Have a Drink Containing Alcohol: 2 to 3 times a week Recent Travel in [facility] within the Last 8 Weeks: No Recent Out of Country Travel within the Last 8 Weeks: No Substance Abuse Detail Other: Substance Use Type Other:: k2 Substance Use Status: Active Route Used Substance Abuse: Inhalation Immunization History Tetanus Immunization: Unsure Hx Influenza Vaccine This Season: Unable to Assess Procedures Laceration Laceration 1: Site: face and lip Side (If applicable): left Size (cm): 3 Description: linear Depth: simple, single layer Anesthetic used: with epi Anesthesia technique:: local infiltration Amount (mL): 3 Pre-repair:: wound explored, irrigated extensively and deep structures intact Skin layer closed with: ethilon Size (cm): 5-0 Number of sutures:: 4 Technique:: simple, interrupted Subcutaneous layer closed with: chromic gut Size: 5-0 Number of sutures: 2 Technique:: simple, interrupted Course Initial Documented Vital Signs Pulse Rate 66 03/07/18 09:43 Respiratory Rate 14 03/07/18 09:43 Blood Pressure 109/61 03/07/18 09:43 Pulse Oximetry 99 03/07/18 09:43 Last Documented Vital Signs Pulse Rate 63 03/07/18 16:00 Respiratory Rate 22 03/07/18 16:00 Blood Pressure 93/64 L 03/07/18 16:00 Pulse Oximetry 100 03/07/18 16:00 Medical Decision Making MDM Narrative Medical decision making narrative: Patient is postictal after seizure, labs ordered, CAT scans ordered 1015: Pt still post ictal, not allowing to suture his laceration. Medical Screen Exam Complete: Yes Emergency Medical Condition: Yes Lab Data Result diagrams: 03/07/18 10:30 03/07/18 10:30 Lab Results 03/07/18 03/07/18 Range/Units 10:30 10:30 WBC 8.2 (4.0-11.0) th/mm3 RBC 4.30 L (4.50-5.90) mil/mm3 Hgb 13.1 (13.0-17.0) gm/dL Hct 37.2 L (39.0-51.0) % MCV 86.4 (80.0-100.0) fL MCH 30.5 (27.0-34.0) pg MCHC 35.2 (32.0-36.0) % RDW 13.5 (11.6-17.2) % Plt Count 224 (150-450) th/mm3 MPV 9.0 (7.0-11.0) fL Neut % (Auto) 76.1 H (16.0-70.0) % Lymph % (Auto) 16.1 (9.0-44.0) % [place] % (Auto) 7.1 (0.0-8.0) % Eos % (Auto) 0.1 (0.0-4.0) % Baso % (Auto) 0.6 (0.0-2.0) % Neut # (Auto) 6.3 (1.8-7.7) th/mm3 Lymph # (Auto) 1.3 (1.0-4.8) th/mm3 [place] # (Auto) 0.6 (0.0-0.9) th/mm3 Eos # (Auto) 0.0 (0.0-0.4) th/mm3 Baso # (Auto) 0.1 (0.0-0.2) th/mm3 WBC Differential . Differential Comment Auto diff final Sodium 143 (136-145) meq/L Potassium 3.2 L (3.5-5.1) meq/L Chloride 108 H (98-107) meq/L Carbon Dioxide 24.6 (21.0-32.0) meq/L Anion Gap 10 (5-15) meq/L BUN 15 (7-18) mg/dL Creatinine 1.27 (0.60-1.30) mg/dL Estimated GFR 63 L (>89) mL/min Random Glucose 114 H (74-106) mg/dL Calcium 8.0 L (8.5-10.1) mg/dL Magnesium 2.1 (1.5-2.5) mg/dL Total Bilirubin 0.9 (0.2-1.0) mg/dL AST 24 (15-37) U/L ALT 47 (12-78) U/L Alkaline Phosphatase 49 (45-117) U/L Total Protein 7.1 (6.4-8.2) g/dL Albumin 4.0 (3.4-5.0) g/dL Phenytoin Less than 0.4 L (10.0-20.0) mcg/mL Serum Alcohol Less than 3 (0-5) mg/dL Imaging Data Radiologist's impression: Head CT 03/07/18 09:52 CONCLUSION: 1. Negative CT Head non contrast. . Abdomen/Pelvis CT 03/07/18 09:55 CONCLUSION: 1. Negative CT Abdomen and Pelvis with contrast. Cervical Spine CT 03/07/18 09:55 CONCLUSION: 1. Negative CT Cervical Spine non contrast. Chest CT 03/07/18 09:55 CONCLUSION: 1. Unremarkable study, questionable fracture of the right lateral clavicle Face CT 03/07/18 09:55 CONCLUSION: 1. Negative CT Facial Bones non contrast. Discharge Plan Discharge Disposition Patient Disposition: 30 Still Patient Discharge Condition Condition: Fair Discharge Details Discharge Comment: Patient was placed on observation Diagnosis: Epileptic seizure, Drug overdose, multiple drugs, Postictal state Physicians Team ED Provider: Nhan Prescott Primary Care Provider: UNKNOWN, Rxs /Orders / Referrals /Forms Prescriptions: No Action levetiracetam [Keppra] 500 mg Tablet 500 mg PO Q12H RF: 0 phenytoin sodium extended [Dilantin] 30 mg Capsule 30 mg PO TID RF: 0 Discharge Interventions Interventions: Vital Signs Last Done: 03/07/18 16:00 Status ED Status: Admitted Patient
[2018-03-07 10:45] LABS: Baso # (Auto) 0.1 th/mm3 (0.0-0.2); Baso % (Auto) 0.6 % (0.0-2.0); Eos % (Auto) 0.1 % (0.0-4.0); Hematocrit 37.2 % (39.0-51.0); Hemoglobin 13.1 gm/dL (13.0-17.0); Lymph # (Auto) 1.3 th/mm3 (1.0-4.8); Lymph % (Auto) 16.1 % (9.0-44.0); Mean Corpuscular HGB Conc 35.2 % (32.0-36.0); Mean Corpuscular Hemoglobin 30.5 pg (27.0-34.0); Mean Corpuscular Volume 86.4 fL (80.0-100.0); Mono # (Auto) 0.6 th/mm3 (0.0-0.9); Mono % (Auto) 7.1 % (0.0-8.0); Neut # (Auto) 6.3 th/mm3 (1.8-7.7); Neut % (Auto) 76.1 % (16.0-70.0); Platelet Count 224 th/mm3 (150-450); Red Cell Distribution Width 13.5 % (11.6-17.2); White Blood Count 8.2 th/mm3 (4.0-11.0)
[2018-03-07 11:00] LABS: Alanine Aminotransferase 47 U/L (12-78); Anion Gap 10 meq/L (5-15); Aspartate Aminotransferase 24 U/L (15-37); Blood Urea Nitrogen 15 mg/dL (7-18); Carbon Dioxide 24.6 meq/L (21.0-32.0); Chloride 108 meq/L (98-107); Glomerular Filtration Rate 63 mL/min (>89); Glucose,Random 114 mg/dL (74-106); Magnesium 2.1 mg/dL (1.5-2.5); Potassium 3.2 meq/L (3.5-5.1); Sodium 143 meq/L (136-145)
[2018-03-07 11:03] LABS: Alkaline Phosphatase 49 U/L (45-117); Total Protein 7.1 g/dL (6.4-8.2)
[2018-03-07] MEDS ORDERED: Phenytoin Inj 1,000 MG in Sodium Chlor 0.9% Inj 100 ML IV.SIG ONE (11:26)
[2018-03-07] MEDS ORDERED: Potassium Chlor 40 mEq Premix 40 MEQ/100 ML PIGGYBACK IV.SIG ONE ×2 (11:26→12:47)
--- NOTE | 2018-03-07 12:19 | CT ---
EXAM DATE: 03/07/2018 12:15 PM EDT AGE/SEX: 42 years / Male INDICATIONS: Seizure, fall and hit head. CLINICAL DATA: This is the patient's initial encounter. Patient reports that signs and symptoms have been present for 1 day and indicates a pain score of 4/10. MEDICAL/SURGICAL HISTORY: Seizures. None. RADIATION DOSE: 56.35 CTDI (mGy) COMPARISON: [facility] [place], CT BRAIN W/O CONTRAST, 07/07/2017. . TECHNIQUE: CT of the head without contrast. Using automated exposure control and adjustment of the mA and/or kV according to patient size, radiation dose was kept as low as reasonably achievable to ob tain optimal diagnostic quality images. DICOM format image data is available electronically for revi ew and comparison. FINDINGS: Cerebrum: The ventricles are normal for age. No evidence of midline shift, mass lesion, hemorrhage or acute infarction. No extraaxial fluid collections are seen. Posterior Fossa: The cerebellum and brainstem are intact. The 4th ventricle is midline. The cerebe llopontine angle is unremarkable. Extracranial: The visualized portion of the orbits is intact. Skull: The calvaria is intact. No evidence of skull fracture. CONCLUSION: 1. Negative CT Head non contrast. . Electronically signed by: Micah Ledesma MD 03/07/2018 12:17 PM EDT
--- NOTE | 2018-03-07 12:20 | CT ---
EXAM DATE: 03/07/2018 12:17 PM EDT AGE/SEX: 42 years / Male INDICATIONS: Seizure, fall and hit head. CLINICAL DATA: This is the patient's initial encounter. Patient reports that signs and symptoms have been present for 1 day and indicates a pain score of 4/10. MEDICAL/SURGICAL HISTORY: Seizures. None. RADIATION DOSE: 19.87 CTDI (mGy) COMPARISON: [facility] [place], CT CERVICAL SPINE W/O CONTRAST, 07/07/2017. . TECHNIQUE: Contiguous axial images were obtained using helical multirow detector technique. The vol umetric data was post-processed with multiplanar reconstruction in oblique axial, sagittal, and coron al planes. Using automated exposure control and adjustment of the mA and/or kV according to patient s ize, radiation dose was kept as low as reasonably achievable to obtain optimal diagnostic quality deepika ges. DICOM format image data is available electronically for review and comparison. FINDINGS: Vertebrae: Normal vertebral body height. Alignment: Normal. No subluxation. C2-3: The bony spinal canal is normal in size. No evidence of disc bulge or herniation. The neural foramina are bilaterally patent. C3-4: The bony spinal canal is normal in size. No evidence of disc bulge or herniation. The neural foramina are bilaterally patent. C4-5: The bony spinal canal is normal in size. No evidence of disc bulge or herniation. The neural foramina are bilaterally patent. C5-6: The bony spinal canal is normal in size. No evidence of disc bulge or herniation. The neural foramina are bilaterally patent. C6-7: The bony spinal canal is normal in size. No evidence of disc bulge or herniation. The neural foramina are bilaterally patent. C7-T1: The bony spinal canal is normal in size. No evidence of disc bulge or herniation. The neura l foramina are bilaterally patent. CONCLUSION: 1. Negative CT Cervical Spine non contrast. Electronically signed by: Micah Ledesma MD 03/07/2018 12:19 PM EDT
--- NOTE | 2018-03-07 12:25 | CT ---
EXAM DATE: 03/07/2018 12:20 PM EDT AGE/SEX: 42 years / Male INDICATIONS: Seizure, fall hit head. CLINICAL DATA: This is the patient's initial encounter. Patient reports that signs and symptoms have been present for 1 day and indicates a pain score of 4/10. MEDICAL/SURGICAL HISTORY: Seizures. None. RADIATION DOSE: 21.96 CTDI (mGy) COMPARISON: No prior exams available for comparison. TECHNIQUE: Contiguous images in the axial and coronal planes were obtained using helical multirow de tector technique. Using automated exposure control and adjustment of the mA and/or kV according to p atient size, radiation dose was kept as low as reasonably achievable to obtain optimal diagnostic sherice lity images. DICOM format image data is available electronically for review and comparison. FINDINGS: Orbits: The orbital and infraorbital osseous structures are intact. The retroconal structures have a normal configuration. No radiopaque foreign bodies are seen. Nasal Bone: The nasal bone and maxillary spine are intact. Zygomatic Arches: Symmetric without evidence of fracture. Sinuses: The maxillary, ethmoid, and frontal sinuses are intact. No air-fluid levels seen. Nasal Cavity: The nasal septum is intact and midline. The lacrimal ducts are intact. Soft Tissues: No radiopaque foreign bodies seen. No soft-tissue swelling is seen. Intracranial: No intracranial air seen. Cribriform Plate: Grossly intact. CONCLUSION: 1. Negative CT Facial Bones non contrast. Electronically signed by: Micah Ledesma MD 03/07/2018 12:23 PM EDT
--- NOTE | 2018-03-07 12:26 | CT ---
EXAM DATE: 03/07/2018 12:22 PM EDT AGE/SEX: 42 years / Male INDICATIONS: Seizure, fall hit head. CLINICAL DATA: This is the patient's initial encounter. Patient reports that signs and symptoms have been present for 1 day and indicates a pain score of 1/10. MEDICAL/SURGICAL HISTORY: Seizures. None. ORAL CONTRAST: No oral contrast ingested. RADIATION DOSE: 5.34 CTDI (mGy) ; Combined studies COMPARISON: No prior exams available for comparison. TECHNIQUE: Multiple contiguous axial images were obtained through the abdomen and pelvis following b olus infusion of 71 ml Omnipaque 350 (iohexol) nonionic water-soluble contrast as a cumulative dose for multiple exams. No oral contrast ingested. Using automated exposure control and adjustment of t he mA and/or kV according to patient size, radiation dose was kept as low as reasonably achievable to obtain optimal diagnostic quality images. DICOM format image data is available electronically for r eview and comparison. FINDINGS: Lower Lungs: The visualized lower lungs are clear. Liver: The liver has a homogeneous density without space-occupying lesion. There is no dilation of th e biliary tree. Spleen: Homogeneous density without enlargement. Pancreas: Unremarkable without mass or calcification. Kidneys: Normal in size and shape. No evidence of mass or hydronephrosis. Adrenal Glands: Unremarkable. Aorta: The aorta and proximal iliac vessels are grossly unremarkable without aneurysmal dilation. Bowel/Mesentery: The bowel loops are grossly unremarkable. The cecum and sigmoid colon have a normal configuration. Abdominal Wall: Intact. Retroperitoneum: No evidence of adenopathy in the retrocrural, para-aortic, or deep pelvic regions. Bladder: Contours are smooth. Reproductive Organs: No abnormal masses or calcifications seen. Inguinal: The inguinal region is unremarkable without evidence of adenopathy. Bony Structures: Unremarkable. CONCLUSION: 1. Negative CT Abdomen and Pelvis with contrast. Electronically signed by: Micah Ledesma MD 03/07/2018 12:24 PM EDT
--- NOTE | 2018-03-07 12:28 | CT ---
EXAM DATE: 03/07/2018 12:24 PM EDT AGE/SEX: 42 years / Male INDICATIONS: Seizure, fall hit head. CLINICAL DATA: This is the patient's initial encounter. Patient reports that signs and symptoms have been present for 1 day and indicates a pain score of 3/10. MEDICAL/SURGICAL HISTORY: Seizures. None. RADIATION DOSE: 5.34 CTDI (mGy) ; Combined studies COMPARISON: No prior exams available for comparison. TECHNIQUE: Multiple contiguous axial images were obtained through the chest during bolus infusion of 71 ml Omnipaque 350 (iohexol) nonionic water-soluble contrast as a cumulative dose for multiple exa ms. Images were obtained in suspended respiration using multiple row detector helical technique. U sing automated exposure control and adjustment of the mA and/or kV according to patient size, radiati on dose was kept as low as reasonably achievable to obtain optimal diagnostic quality images. DICOM format image data is available electronically for review and comparison. FINDINGS: Lungs: The lungs are symmetrically aerated. No infiltrates or nodular densities are seen. Mediastinum: There is good visualization of the great vessels of the middle mediastinum. No evidenc e of mediastinal or hilar adenopathy/mass. Pleurae: No evidence of focal thickening or pleural effusion. Axillae: Unremarkable. Bony Structures: There may be a fracture of the right lateral clavicle, age indeterminate. Miscellaneous: The examination was extended to include the upper abdomen, and both adrenal glands ar e normal in size and configuration. CONCLUSION: 1. Unremarkable study, questionable fracture of the right lateral clavicle Electronically signed by: Micah Ledesma MD 03/07/2018 12:26 PM EDT
[2018-03-07] MEDS: Potassium Chlor 20 mEq Premix 20 MEQ/100 ML PIGGYBACK IV.SIG SCH ×2 (12:54→13:37)
--- NOTE | 2018-03-07 17:40 | ECG ---
Date Performed: 03/07/2018 Time Performed: 10:46:42 PTAGE: 42 years EKG: SINUS BRADYCARDIA BORDERLINE ECG PREVIOUS TRACING : 07/07/2017 20.13 DOCTOR: Ariana Gann Interpretating Date/Time 03/07/2018 17:37:19
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
[2018-03-07] MEDS: Sod Chloride 0.9% Inj 1,000 ML IV.CONT SCH (19:26)
[2018-03-08] MEDS: Sod Chloride 0.9% Inj 1,000 ML IV.CONT SCH ×2 (03:30→11:36)
[2018-03-08 07:49] LABS: Calcium 7.9 mg/dL (8.5-10.1); Carbon Dioxide 23.3 meq/L (21.0-32.0); Potassium 3.7 meq/L (3.5-5.1)
[2018-03-08] MEDS: Phenytoin Sodium 100 MG Capsule PO SCH ×3 (08:23→17:19)
[2018-03-08] MEDS ORDERED: levETIRAcetam 500 MG Tablet PO SCH (09:00)
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
[2018-03-08 12:51] VITALS: RESP 18
[2018-03-08] MEDS ORDERED: Acetaminophen 325 MG Tablet PO PRN (14:42)
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
--- NOTE | 2018-03-08 15:35 | XR ---
EXAM DATE: 03/08/2018 12:00 AM EDT AGE/SEX: 42 years / Male INDICATIONS: Lower back pain after falling during a seizure. CLINICAL DATA: This is the patient's subsequent encounter. Patient reports that signs and symptoms h ave been present for 1 day and indicates a pain score of Nonresponsive. MEDICAL/SURGICAL HISTORY: Seizures. None. COMPARISON: No prior exams available for comparison. FINDINGS: The vertebral bodies are in normal alignment without evidence of compression deformity. Bone density is normal for age. Soft tissues are grossly intact. There is good alignment of the SI joints. CONCLUSION: Unremarkable plain films of the lumbar spine. Electronically signed by: Jw Rushing MD 03/08/2018 3:34 PM EDT
--- NOTE | 2018-03-08 15:35 | XR ---
EXAM DATE: 03/08/2018 12:00 AM EDT AGE/SEX: 42 years / Male INDICATIONS: Right knee pain after falling during a seizure. CLINICAL DATA: This is the patient's initial encounter. Patient reports that signs and symptoms have been present for 1 day and indicates a pain score of Nonresponsive. MEDICAL/SURGICAL HISTORY: Seizures. None. COMPARISON: No prior exams available for comparison. FINDINGS: Bony structures are intact and in normal alignment. Joints are intact without dislocation or signifi cant arthropathy. Osseous density is normal. Soft tissues are unremarkable. No joint effusion. No r adiopaque foreign bodies seen. CONCLUSION: Unremarkable examination of the right knee. Electronically signed by: Jw Rushing MD 03/08/2018 3:34 PM EDT
[2018-03-08 16:46] VITALS: BP 113/72; PULSE 80; TEMP 98.6; O2SAT 100
[2018-03-08 16:52] LABS: Amphetamine Screen,Urine Neg (Neg); Barbiturate Screen,Urine Neg (Neg); Cannabinoid Screen,Urine Pos (Neg); Cocaine Screen,Urine Pos (Neg)
[2018-03-08 16:53] LABS: Opiate Screen,Urine Neg (Neg)
--- NOTE | 2018-03-08 20:00 | P.AMA ---
AMA Note - AMA Note AMA Statement: Patient Rasheed Haddad has decided to leave the hospital against medical advice. This patient has the capacity to refuse care and understands the risks of leaving, including permanent disability and/or , and has had an opportunity to ask questions about his/her condition. The patient has been informed that he/she may return for care at any time, and follow up has been arranged/advised. - AMA Note Discharge Disposition: Against Medical Advice Patient Condition on Discharge: Fair
== END 2018-03-08 19:58 | disposition left against medical advice (07) ==
LOC: NEPC 09:34 → NEDA 18:23 → INTOOBSV 18:23 → NEPGCP 20:06
PROVIDERS: ADMIT Family Medicine; ATTEND Family Medicine
DX: S01.511A Laceration without foreign body of lip, initial encounter; M25.561 Pain in right knee; M54.5 Low back pain; E87.0 Hyperosmolality and hypernatremia; R06.2 Wheezing; E87.6 Hypokalemia; Z91.19 Patient's noncompliance with other medical treatment and regimen; G40.909 Epilepsy, unspecified, not intractable, without status epilepticus; F19.90 Other psychoactive substance use, unspecified, uncomplicated; F17.210 Nicotine dependence, cigarettes, uncomplicated

== ENCOUNTER 2018-04-21 18:22 | Observation (INO) ==
[2018-04-21] MEDS ORDERED: Sod Chloride 0.9% Inj 1,000 ML IV.SIG ONE ×2 (18:32→20:51)
[2018-04-21] MEDS ORDERED: Tetanus/Diphtheria Toxoid Adult Vaccine Inj 0.5 ML Vial IM ONE (18:32)
[2018-04-21] MEDS ORDERED: levETIRAcetam 500 MG Tablet PO ONE (18:35)
--- NOTE | 2018-04-21 18:39 | ED ---
HPI General Chief Complaint: Seizure Stated Complaint: Poss Seziure Time Seen by Provider: 04/21/18 18:32 Source: patient and EMS Mode of arrival: EMS Limitations: no limitations History of Present Illness HPI Narrative: 42-year-old male with PMH of epilepsy, substance abuse presents to the ED via EMS for evaluation after reported seizure. The patient states that he was at a friend's house, began to feel weak. He states that he fell to the ground and lost consciousness. He states that he woke up and called 911. On presentation he states that he feels disoriented. He states that he missed his morning dose of Keppra. He denies headache, dizziness, chest pain, palpitations, shortness of breath, abdominal pain, nausea, vomiting. He denies any illicit drug use or alcohol use. He is unsure the date of his last tetanus immunization. Related Data Home Medications Medication Instructions Recorded Confirmed levetiracetam [Keppra] 500 mg PO Q12H 03/07/18 04/21/18 phenytoin sodium extended 200 mg PO BID 03/07/18 04/21/18 [Dilantin] Allergies Allergy/AdvReac Type Severity Reaction Status Date / Time No Known Allergies Allergy Unverified 03/07/18 09:42 Review of Systems ROS: all other systems reviewed are negative PMFSH Medical History Medical History Seizure (Acute) Family History Family History Other No pertinent family history Social History Social History Substance History: No History of Abuse Second Hand Smoke Exposure: Yes Smoking Status: Current every day smoker Tobacco Type: Cigarettes How Often Do You Have a Drink Containing Alcohol: Never Recent Travel in [place] within the Last 8 Weeks: No Recent Out of Country Travel within the Last 8 Weeks: No Immunization History Tetanus Immunization: Unsure Exam Narrative Exam Narrative: GENERAL: Well-nourished, well-developed male in no acute distress. Alert and oriented x3 SKIN: Focused skin assessment warm/dry. Abrasion left aspect lower lip. Superficial abrasions on bilateral anterior knees. Superficial abrasion of the knuckles of the right hand. HEAD: Normocephalic. 2 approximate 1-2 cm areas of the left parietal scalp with edema and superficial abrasions. EYES: Pupils equal and round. No scleral icterus. No injection or drainage. ENT: No nasal bleeding or discharge. Mucous membranes pink and moist. [place] tympanic membranes bilaterally. Oropharynx without erythema, edema, exudate. NECK: Trachea midline. No JVD. No posterior tenderness. No limitation to range of motion. CARDIOVASCULAR: Regular rate and rhythm. No murmur appreciated. RESPIRATORY: No accessory muscle use. Clear to auscultation. Breath sounds equal bilaterally. GASTROINTESTINAL: Abdomen soft, non-tender, nondistended. Hepatic and splenic margins not palpable. MUSCULOSKELETAL: No obvious deformities. No clubbing. No cyanosis. No edema. Moves extremities spontaneously. 5/5 strength in the upper and lower extremities bilaterally. NEUROLOGICAL: Awake and alert. No obvious cranial nerve deficits. Motor grossly within normal limits. Normal speech. PSYCHIATRIC: Appropriate mood and affect; insight and judgment normal. Course Reevaluation(s) Reevaluation #1: Sleeping Time: 22:17 Initial Documented Vital Signs Pulse Rate 98 H 04/21/18 18:30 Respiratory Rate 17 04/21/18 18:30 Blood Pressure 148/99 H 04/21/18 18:30 Pulse Oximetry 100 04/21/18 18:30 Last Documented Vital Signs Pulse Rate 86 04/21/18 22:33 Respiratory Rate 18 04/21/18 22:33 Blood Pressure 116/66 04/21/18 22:33 Pulse Oximetry 100 04/21/18 22:33 Medical Decision Making [facility] Narrative Medical decision making narrative: 42-year-old male with PMH of epilepsy, polysubstance abuse presents the ED via EMS with complaint of pseudoseizure. Patient is alert and oriented x3. He states that he was at a friend's house, began to feel lightheaded, sat in a chair, woke up and called EMS. EMS reports that they found him on the street, alert and oriented. Physical exam reveals no focal neuro deficits. There are several superficial abrasions including of bilateral knees, knuckles of the right hand and an abrasion of the left aspect of the lower lip. Patient also has 2 small cephalhematomas with abrasions on the left posterior aspect of the head. Shortly after arrival patient began to demonstrate seizure-like activity. He was administered 2 mg of Ativan. Symptoms improved for approximately 45 minutes before patient was again observed to demonstrate this seizure-like activity. He was administered a second dose of Ativan. Tetanus immunization was administered. CT of the head reveals no acute findings. CBC with marked leukocytosis of 24.3. Potassium of 5.2 slight hemolysis noted. Magnesium 3.1. Creatinine 1.5, BUN 10. CK 2406. Patient was administered a second liter normal saline. Repeat labs with resolution of hyperkalemia, magnesium down to 2.9. Dilantin level 1.2. He was administered a loading dose of 1 g Dilantin IV. Alcohol level less than 3. Tox screen pending. Will admit for subtherapeutic Dilantin level, altered mental status. Please see medicine notes for disposition. Medical Screen Exam Complete: Yes Emergency Medical Condition: Yes Differential Diagnosis Differential Diagnosis: Seizure versus polysubstance abuse versus assault versus other Lab Data Result diagrams: 04/21/18 18:35 04/21/18 21:06 Lab Results 04/21/18 04/21/18 04/21/18 Range/Units 18:35 18:35 21:06 WBC 24.3 H (4.0-11.0) th/mm3 RBC 5.04 (4.50-5.90) mil/mm3 Hgb 15.2 (13.0-17.0) gm/dL Hct 44.2 (39.0-51.0) % MCV 87.7 (80.0-100.0) fL MCH 30.1 (27.0-34.0) pg MCHC 34.3 (32.0-36.0) % RDW 13.0 (11.6-17.2) % Plt Count 289 (150-450) th/mm3 MPV 9.6 (7.0-11.0) fL Prelim Diff (Auto) Social Welfare Administrator Neut % (Auto) 93.4 H (16.0-70.0) % Lymph % (Auto) 2.7 L (9.0-44.0) % [place] % (Auto) 3.7 (0.0-8.0) % Eos % (Auto) 0.0 (0.0-4.0) % Baso % (Auto) 0.2 (0.0-2.0) % Neut # (Auto) 22.7 H (1.8-7.7) th/mm3 Lymph # (Auto) 0.7 L (1.0-4.8) th/mm3 [place] # (Auto) 0.9 (0.0-0.9) th/mm3 Eos # (Auto) 0.0 (0.0-0.4) th/mm3 Baso # (Auto) 0.1 (0.0-0.2) th/mm3 WBC Differential . Differential Comment Auto diff final Sodium 142 (136-145) meq/L Potassium 5.2 H (3.5-5.1) meq/L Chloride 106 (98-107) meq/L Carbon Dioxide 18.1 L (21.0-32.0) meq/L Anion Gap 18 H (5-15) meq/L BUN 10 (7-18) mg/dL Creatinine 1.53 H (0.60-1.30) mg/dL Estimated GFR 51 L (>89) mL/min Random Glucose 147 H (74-106) mg/dL Calcium 9.6 (8.5-10.1) mg/dL Magnesium 3.1 H (1.5-2.5) mg/dL Total Creatine Kinase (39-308) U/L Phenytoin 1.2 L (10.0-20.0) mcg/mL Serum Alcohol Less than 3 (0-5) mg/dL 04/21/18 04/21/18 Range/Units 21:06 21:06 WBC (4.0-11.0) th/mm3 RBC (4.50-5.90) mil/mm3 Hgb (13.0-17.0) gm/dL Hct (39.0-51.0) % MCV (80.0-100.0) fL MCH (27.0-34.0) pg MCHC (32.0-36.0) % RDW (11.6-17.2) % Plt Count (150-450) th/mm3 MPV (7.0-11.0) fL Prelim Diff (Auto) Neut % (Auto) (16.0-70.0) % Lymph % (Auto) (9.0-44.0) % [place] % (Auto) (0.0-8.0) % Eos % (Auto) (0.0-4.0) % Baso % (Auto) (0.0-2.0) % Neut # (Auto) (1.8-7.7) th/mm3 Lymph # (Auto) (1.0-4.8) th/mm3 [place] # (Auto) (0.0-0.9) th/mm3 Eos # (Auto) (0.0-0.4) th/mm3 Baso # (Auto) (0.0-0.2) th/mm3 WBC Differential Differential Comment Sodium 143 (136-145) meq/L Potassium 4.3 D (3.5-5.1) meq/L Chloride 109 H (98-107) meq/L Carbon Dioxide 21.8 (21.0-32.0) meq/L Anion Gap 12 (5-15) meq/L BUN 11 (7-18) mg/dL Creatinine 1.12 (0.60-1.30) mg/dL Estimated GFR 73 L (>89) mL/min Random Glucose 92 (74-106) mg/dL Calcium 8.6 D (8.5-10.1) mg/dL Magnesium 2.9 H (1.5-2.5) mg/dL Total Creatine Kinase 2406 H (39-308) U/L Phenytoin (10.0-20.0) mcg/mL Serum Alcohol (0-5) mg/dL Imaging Data Radiologist's impression: Head CT 04/21/18 19:15 CONCLUSION: 1. No acute intracranial abnormality. 2. Focal, nonspecific left posterior parietal scalp thickening. Please correlate clinically. . ECG Data Attestation: I personally reviewed and interpreted this ECG as follows: Interpretation: Rate 85, sinus rhythm. [place] interval 131, QRS 93, QTc 412. Borderline LAD. Reviewed by Dr. Guy. Discharge Plan Discharge Disposition Patient Disposition: 30 Still Patient Physicians Team ED Provider: Hayley Guy ED Midlevel Provider: aPtricia Golden Primary Care Provider: UNKNOWN, Rxs /Orders / Referrals /Forms Prescriptions: No Action levetiracetam [Keppra] 500 mg Tablet 500 mg PO Q12H RF: 0 phenytoin sodium extended [Dilantin] 30 mg Capsule 200 mg PO BID RF: 0 Status ED Status: Admitted Observation Patient
[2018-04-21 19:06] LABS: Baso # (Auto) 0.1 th/mm3 (0.0-0.2); Baso % (Auto) 0.2 % (0.0-2.0); Hematocrit 44.2 % (39.0-51.0); Hemoglobin 15.2 gm/dL (13.0-17.0); Lymph # (Auto) 0.7 th/mm3 (1.0-4.8); Lymph % (Auto) 2.7 % (9.0-44.0); Mean Corpuscular HGB Conc 34.3 % (32.0-36.0); Mean Corpuscular Hemoglobin 30.1 pg (27.0-34.0); Mean Corpuscular Volume 87.7 fL (80.0-100.0); Mean Platelet Volume 9.6 fL (7.0-11.0); Mono # (Auto) 0.9 th/mm3 (0.0-0.9); Mono % (Auto) 3.7 % (0.0-8.0); Neut # (Auto) 22.7 th/mm3 (1.8-7.7); Neut % (Auto) 93.4 % (16.0-70.0); Platelet Count 289 th/mm3 (150-450); Red Blood Count 5.04 mil/mm3 (4.50-5.90); White Blood Count 24.3 th/mm3 (4.0-11.0)
[2018-04-21 19:31] LABS: Calcium 9.6 mg/dL (8.5-10.1); Carbon Dioxide 18.1 meq/L (21.0-32.0); Magnesium 3.1 mg/dL (1.5-2.5)
[2018-04-21 19:33] LABS: Potassium 5.2 meq/L (3.5-5.1)
--- NOTE | 2018-04-21 19:41 | CT ---
EXAM DATE: 04/21/2018 7:34 PM EST AGE/SEX: 42 years / Male INDICATIONS: Multiple seizures today. CLINICAL DATA: This is the patient's initial encounter. Patient reports that signs and symptoms have been present for 1 day and indicates a pain score of 3/10. MEDICAL/SURGICAL HISTORY: Seizures. None. RADIATION DOSE: 56.35 CTDI (mGy) COMPARISON: [facility] [place], CT HEAD W/O CONTRAST, 03/07/2018. . TECHNIQUE: CT of the head without contrast. Using automated exposure control and adjustment of the mA and/or kV according to patient size, radiation dose was kept as low as reasonably achievable to ob tain optimal diagnostic quality images. DICOM format image data is available electronically for revi ew and comparison. FINDINGS: Cerebrum: The ventricles are normal for age. No evidence of midline shift, mass lesion, hemorrhage or acute infarction. No extraaxial fluid collections are seen. Posterior Fossa: The cerebellum and brainstem are intact. The 4th ventricle is midline. The cerebe llopontine angle is unremarkable. Extracranial: Focal heterogeneous scalp thickening seen left posterior parietal region. Skull: The calvaria is intact. No evidence of skull fracture. CONCLUSION: 1. No acute intracranial abnormality. 2. Focal, nonspecific left posterior parietal scalp thickening. Please correlate clinically. . Electronically signed by: Romaine Graham MD 04/21/2018 7:39 PM EST
[2018-04-21 22:16] LABS: Phenytoin (Dilantin) 1.2 mcg/mL (10.0-20.0)
[2018-04-21 22:30] LABS: Calcium 8.6 mg/dL (8.5-10.1); Carbon Dioxide 21.8 meq/L (21.0-32.0); Magnesium 2.9 mg/dL (1.5-2.5); Potassium 4.3 meq/L (3.5-5.1)
[2018-04-21] MEDS ORDERED: Phenytoin Inj 1,000 MG in Sodium Chlor 0.9% Inj 100 ML IV.SIG ONE (22:34)
[2018-04-21 22:46] LABS: CKMB Percent 1.5 % (0.0-4.0); Creatine Kinase MB 35.1 ng/mL (0.5-3.6)
[2018-04-21] MEDS ORDERED: Sod Chloride 0.9% Inj 1,000 ML IV.CONT SCH (23:00)
[2018-04-21 23:30] LABS: Amphetamine Screen,Urine Neg (Neg); Barbiturate Screen,Urine Neg (Neg); Cannabinoid Screen,Urine Pos (Neg); Cocaine Screen,Urine Pos (Neg)
[2018-04-21 23:31] LABS: Opiate Screen,Urine Neg (Neg)
[2018-04-22] MEDS: levETIRAcetam 500 MG Tablet PO SCH ×2 (00:37→11:32)
--- NOTE | 2018-04-22 01:33 | P.HPIM ---
History of Present Illness Service: [facility] Primary Care Physician: UNKNOWN History of Present Illness: 42 y/o male with a history of epilepsy, cocaine abuse presented to the ED with complaints of a reported seizure. He states he was at a friend's out and forgot to take his morning Keppra and had a seizure. He did hit his head and had a large area of occipital swelling. He currently denies any chest pain , sob, fever or chills. He is unsure of the neurologist name he has seen in [place] but states he has not followed with him recently. [facility] Medical History Medical History Seizure (Acute) Family History Family History Other No pertinent family history Social History Social History Substance History: Active Abuse Second Hand Smoke Exposure: Yes Smoking Status: Current every day smoker Tobacco Type: Cigarettes How Often Do You Have a Drink Containing Alcohol: Never Recent Travel in [facility] within the Last 8 Weeks: No Recent Out of Country Travel within the Last 8 Weeks: No Substance Abuse Detail Crack/Cocaine: Substance Use Status: Active Route Used Substance Abuse: Inhalation Reason for Use: Get High Marijuana: Substance Use Status: Active Route Used Substance Abuse: Inhalation Reason for Use: Get High Immunization History Tetanus Immunization: Unsure Medications and Allergies Allergies Allergy/AdvReac Type Severity Reaction Status Date / Time No Known Allergies Allergy Unverified 03/07/18 09:42 Home Medications Medication Instructions Recorded Confirmed Type levetiracetam [Keppra] 500 mg PO Q12H 03/07/18 04/21/18 History phenytoin sodium extended 200 mg PO BID 03/07/18 04/21/18 History [Dilantin] Active Medications: Active Medications Sodium Chloride (Ns Inj) 1,000 mls @ 75 mls/hr IV.CONT .[id number] [facility] Last Admin: 04/22/18 00:38 Dose: 75 mls/hr Levetiracetam (Keppra) 500 mg PO Q12H [facility] Last Admin: 04/22/18 00:37 Dose: 500 mg Phenytoin Sodium (Dilantin) 200 mg PO BID [facility] Sodium Chloride (Ns Flush) 2 ml IV.FLUSH PRN PRN PRN Reason: FLUSH AFTER USING IV ACCESS Physical Exam Vital signs: Last Vital Signs Temp 98.3 F 04/22/18 00:00 Pulse 83 04/22/18 00:00 Resp 18 04/22/18 00:00 BP 90/54 L 04/22/18 00:00 Pulse Ox 97 04/22/18 00:00 Intake & Output 04/19/18 04/20/18 04/21/18 04/22/18 06:59 06:59 06:59 06:59 Intake Total 2224 / 2224 Balance 2224 Weight 68.039 kg Narrative: GENERAL: well nourished patient in no distress SKIN: Warm and dry. lip red and swollen HEAD: Normocephalic. swelling to left occipital area from fall EYES: No scleral icterus. No injection or drainage. NECK: Supple, trachea midline. No JVD or lymphadenopathy. CARDIOVASCULAR: Regular rate and rhythm without murmurs, gallops, or rubs. RESPIRATORY: Breath sounds equal bilaterally. No accessory muscle use. GASTROINTESTINAL: Abdomen soft, non-tender, nondistended. MUSCULOSKELETAL: No cyanosis, or edema. Assessment and Plan Plan Seizure with subtherapeutic Depakote level Phenytoin level 1.2 -IV phenytoin given in ED, resume home medications -Resume home keppra -Seizure precautions -Recheck phenytoin level in am, consult neurology if needed Substance abuse, drug screen positive for cocaine -Encouraged to quit DVT prophylaxis: SCDs H&P: Quality VTE Deep Vein Thrombosis/Pulmonary Embolism Present on Admission: No
[2018-04-22 04:22] VITALS: O2SAT 99
[2018-04-22] MEDS ORDERED: Phenytoin Sodium 100 MG Capsule PO SCH (09:00)
[2018-04-22 09:49] LABS: Baso # (Auto) 0.1 th/mm3 (0.0-0.2); Baso % (Auto) 0.6 % (0.0-2.0); Eos % (Auto) 0.1 % (0.0-4.0); Hematocrit 39.8 % (39.0-51.0); Hemoglobin 13.6 gm/dL (13.0-17.0); Lymph # (Auto) 1.5 th/mm3 (1.0-4.8); Lymph % (Auto) 11.4 % (9.0-44.0); Mean Corpuscular HGB Conc 34.1 % (32.0-36.0); Mean Corpuscular Hemoglobin 29.8 pg (27.0-34.0); Mean Corpuscular Volume 87.3 fL (80.0-100.0); Mean Platelet Volume 8.9 fL (7.0-11.0); Mono # (Auto) 0.9 th/mm3 (0.0-0.9); Mono % (Auto) 6.9 % (0.0-8.0); Neut # (Auto) 10.9 th/mm3 (1.8-7.7); Platelet Count 270 th/mm3 (150-450); Red Blood Count 4.56 mil/mm3 (4.50-5.90); Red Cell Distribution Width 12.8 % (11.6-17.2); White Blood Count 13.5 th/mm3 (4.0-11.0)
[2018-04-22 10:14] LABS: Calcium 8.6 mg/dL (8.5-10.1); Carbon Dioxide 24.1 meq/L (21.0-32.0); Magnesium 2.7 mg/dL (1.5-2.5); Potassium 3.4 meq/L (3.5-5.1)
[2018-04-22 10:34] LABS: Phenytoin (Dilantin) 19.6 mcg/mL (10.0-20.0)
[2018-04-22 10:51] LABS: CKMB Percent 0.9 % (0.0-4.0)
--- NOTE | 2018-04-22 11:29 | P.DS ---
Date of admission: 04/21/18 22:45 Primary care physician: UNKNOWN Attending physician on discharge: Dionna Benoit Anticipated date of discharge: 04/22/18 Brief History from admission: 42 y/o male with a history of epilepsy, cocaine abuse presented to the ED with complaints of a reported seizure. He states he was at a friend's out and forgot to take his morning Keppra and had a seizure. He did hit his head and had a large area of occipital swelling. He currently denies any chest pain , sob, fever or chills. He is unsure of the neurologist name he has seen in [place] but states he has not followed with him recently. Patient update on day of discharge: Patient is seen sitting up in bed. He tells me he has not had any more seizures since admission. No dizziness or changes in vision. No nausea or vomiting. DS: Diagnosis - Discharge Diagnosis (1) Non compliance w medication regimen Status: Chronic (2) Epileptic seizure Status: Chronic (3) Drug overdose, multiple drugs Status: Acute DS: Medications - Discharge Medications Prescriptions: levetiracetam [Keppra] 500 mg PO BID #300 ml DS: Summary Hospital Course: Patient is a 42-year-old -[place] male with a history of seizure disorder and noncompliance with medication. He missed doses of his medication and experienced a fall. CT of the head was negative. Also positive for multi- substance; encouraged cessation. Encouraged better adherence to medication regimen. He tells me that he has trouble swallowing his large Keppra pills so will discharge with Rx for liquid Keppra. Seizure with subtherapeutic Depakote level Phenytoin level 1.2 -IV phenytoin given in ED, resume home medications -Resume home keppra -Seizure precautions Substance abuse, drug screen positive for cocaine -Encouraged to quit - Time Spent with Patient Total time spent providing and/or coordinating discharge services: Less than 30 minutes - Quality: VTE Deep Vein Thrombosis/Pulmonary Embolism Present on Admission: No Exam Vital signs: Vital Signs 04/21/18 18:30 04/21/18 18:33 04/21/18 19:12 Temperature Pulse Rate 98 H 101 H Respiratory Rate 17 20 Blood Pressure 148/99 H 154/83 H Pulse Oximetry 100 100 100 04/21/18 19:21 04/21/18 21:10 04/21/18 22:33 Temperature Pulse Rate 94 H 79 86 Respiratory Rate 16 18 Blood Pressure 112/74 116/66 Pulse Oximetry 100 100 100 04/21/18 23:00 04/22/18 00:00 04/22/18 04:00 Temperature 98.3 F 99.0 F Pulse Rate 91 H 83 90 Respiratory Rate 18 18 14 Blood Pressure 111/70 90/54 L 104/63 Pulse Oximetry 99 97 99 04/22/18 04:49 04/22/18 08:00 Temperature 98.4 F Pulse Rate 84 70 Respiratory Rate 20 Blood Pressure 118/68 Pulse Oximetry 99 Intake & Output 04/21/18 04/22/18 04/22/18 18:59 06:59 18:59 Intake Total 2465 / 2465 Output Total 530 / 530 Balance 1934 / 1934 Weight 68.039 kg 68.039 kg Intake: IV 2225 / 2225 Dilantin Inj 1,000 MG In NS Inj 120 / 120 100 ML @ 240 mls/hr IV.SIG ONCE ONE Rx#:[id number] NS Inj 1,000 ML @ Wide Open IV. 1999 / 1999 SIG BOLUS ONE Rx#:[id number] Keppra Inj 500 MG In NS Inj 100 105 / 105 ML @ 400 mls/hr IV.SIG ONCE ONE Rx#:[id number] Oral 240 / 240 Output: Urine 530 / 530 Other: Weight On Admission 68.039 kg Narrative: GENERAL: well nourished patient in no distress SKIN: Warm and dry. lip red and swollen HEAD: Normocephalic. swelling to left occipital area from fall EYES: No scleral icterus. No injection or drainage. NECK: Supple, trachea midline. No JVD or lymphadenopathy. CARDIOVASCULAR: Regular rate and rhythm without murmurs, gallops, or rubs. RESPIRATORY: Breath sounds equal bilaterally. No accessory muscle use. GASTROINTESTINAL: Abdomen soft, non-tender, nondistended. MUSCULOSKELETAL: No cyanosis, or edema. Results Procedures completed during hospitalization: none Labs on day of discharge: Labs from last 24 hours 04/22/18 04/22/18 04/22/18 09:35 09:35 09:26 WBC 13.5 H RBC 4.56 Hgb 13.6 Hct 39.8 MCV 87.3 MCH 29.8 MCHC 34.1 RDW 12.8 Plt Count 270 MPV 8.9 Prelim Diff (Auto) Neut % (Auto) 81.0 H Lymph % (Auto) 11.4 [place] % (Auto) 6.9 Eos % (Auto) 0.1 Baso % (Auto) 0.6 Neut # (Auto) 10.9 H Lymph # (Auto) 1.5 [place] # (Auto) 0.9 Eos # (Auto) 0.0 Baso # (Auto) 0.1 WBC Differential . Differential Comment Auto diff final Sodium 146 H Potassium 3.4 L D Chloride 113 H Carbon Dioxide 24.1 Anion Gap 9 BUN 11 Creatinine 1.12 Estimated GFR 73 L Random Glucose 90 Calcium 8.6 Magnesium 2.7 H Total Creatine Kinase 2149 H CK-MB (CK-2) 20.0 H CK-MB (CK-2) % 0.9 Urine Opiates Screen Ur Barbiturates Screen Phenytoin 19.6 Ur Amphetamines Screen U Benzodiazepines Scrn Urine Cocaine Screen U Cannabinoids Screen Serum Alcohol 04/21/18 04/21/18 04/21/18 23:04 21:06 21:06 WBC RBC Hgb Hct MCV MCH MCHC RDW Plt Count MPV Prelim Diff (Auto) Neut % (Auto) Lymph % (Auto) [place] % (Auto) Eos % (Auto) Baso % (Auto) Neut # (Auto) Lymph # (Auto) [place] # (Auto) Eos # (Auto) Baso # (Auto) WBC Differential Differential Comment Sodium 143 Potassium 4.3 D Chloride 109 H Carbon Dioxide 21.8 Anion Gap 12 BUN 11 Creatinine 1.12 Estimated GFR 73 L Random Glucose 92 Calcium 8.6 D Magnesium 2.9 H Total Creatine Kinase 2406 H CK-MB (CK-2) 35.1 H CK-MB (CK-2) % 1.5 Urine Opiates Screen Neg Ur Barbiturates Screen Neg Phenytoin Ur Amphetamines Screen Neg U Benzodiazepines Scrn Neg Urine Cocaine Screen Pos H U Cannabinoids Screen Pos H Serum Alcohol 04/21/18 04/21/18 04/21/18 21:06 18:35 18:35 WBC 24.3 H RBC 5.04 Hgb 15.2 Hct 44.2 MCV 87.7 MCH 30.1 MCHC 34.3 RDW 13.0 Plt Count 289 MPV 9.6 Prelim Diff (Auto) [employer] Neut % (Auto) 93.4 H Lymph % (Auto) 2.7 L [place] % (Auto) 3.7 Eos % (Auto) 0.0 Baso % (Auto) 0.2 Neut # (Auto) 22.7 H Lymph # (Auto) 0.7 L [place] # (Auto) 0.9 Eos # (Auto) 0.0 Baso # (Auto) 0.1 WBC Differential . Differential Comment Auto diff final Sodium 142 Potassium 5.2 H Chloride 106 Carbon Dioxide 18.1 L Anion Gap 18 H BUN 10 Creatinine 1.53 H Estimated GFR 51 L Random Glucose 147 H Calcium 9.6 Magnesium 3.1 H Total Creatine Kinase CK-MB (CK-2) CK-MB (CK-2) % Urine Opiates Screen Ur Barbiturates Screen Phenytoin 1.2 L Ur Amphetamines Screen U Benzodiazepines Scrn Urine Cocaine Screen U Cannabinoids Screen Serum Alcohol Less than 3 - Impressions ITS Impressions Head CT 04/21/18 19:15 CONCLUSION: 1. No acute intracranial abnormality. 2. Focal, nonspecific left posterior parietal scalp thickening. Please correlate clinically. . Discharge Plan - Discharge Disposition Patient Disposition: 01 Discharge Home - Discharge Condition Condition: Stable - Discharge Order Discharge Orders: Discharge Order (Routine); Ordered 04/22/18 Ordered By: Carmen Meza - Physicians Team Primary Care Provider: UNKNOWN, Attending Provider: Dionna Benoit Other Providers: [employer],Insurance
[2018-04-22] MEDS ORDERED: Potassium Chloride 25 MEQ Effervescent Tablet PO ONE (11:45)
[2018-04-22 12:31] VITALS: BP 110/72; PULSE 89; RESP 16; TEMP 98.3
--- NOTE | 2018-04-22 16:42 | ECG ---
Date Performed: 04/21/2018 Time Performed: 21:05:31 PTAGE: 42 years EKG: Sinus rhythm POSSIBLE LEFT ATRIAL ENLARGEMENT BORDERLINE RIGHT AXIS DEVIATION ST ELEVATION CONSISTENT WITH INJURY , PERICARDITIS, OR EARLY REPOLARIZATION Since the previous tracing, no significant change noted ABNOR MAL ECG PREVIOUS TRACING : 03/07/2018 10.46 DOCTOR: Tayo Gallardo Interpretating Date/Time 04/22/2018 16:39:59
== END 2018-04-22 13:23 | disposition home or self-care (01) ==
LOC: NEPC 18:22 → NEDA 18:22 → NEPHCDU 04-22 00:01
PROVIDERS: ADMIT Family Medicine; ATTEND Family Medicine